=== PATIENT | male | born 1970 | race Caucasian/White ===

== ENCOUNTER 2018-07-27 13:51 | Emergency (ER) | payer MEDICAID ==
[2018-07-27 13:53] VITALS: BP 105/61
[2018-07-27] MEDS ORDERED: HTN MEDICATION (14:02)
[2018-07-27] MEDS ORDERED: OXYCODONE (14:02)
[2018-07-27 14:26] LABS: BASOPHILS # (AUTO) 0.07 x10^3/uL (0-0.1); BASOPHILS % (AUTO) 1 % (0-1); EOSINOPHILS # (AUTO) 0.17 x10^3/uL (0-0.4); EOSINOPHILS % (AUTO) 3 % (1-7); LYMPHOCYTES # (AUTO) 2.29 x10^3/uL (1-3.4); LYMPHOCYTES % (AUTO) 34 % (22-44); MD NO; MEAN CORPUSCULAR HEMOGLOBIN 32.3 pg (27.5-34.5); MEAN CORPUSCULAR HGB CONC 32.9 g/dL (33.2-36.2); MEAN CORPUSCULAR VOLUME 98.2 fL (81-97); MEAN PLATELET VOLUME 9.9 fL (7.4-10.4); MONOCYTES # (AUTO) 0.57 x10^3/uL (0.2-0.8); MONOCYTES % (AUTO) 8 % (2-9); NEUTROPHILS # (AUTO) 3.63 x10^3/uL (1.8-6.8); NEUTROPHILS % (AUTO) 54 % (42-75); PLATELET COUNT 166 x10^3/uL (130-400); RED BLOOD COUNT 4.02 x10^6/uL (4.38-5.82); RED CELL DISTRIBUTION WIDTH 14.4 % (9.4-14.8)
[2018-07-27 14:31] LABS: INTERNATIONAL NORMALIZED RATIO 0.95 (0.93-1.1)
[2018-07-27 14:32] LABS: ALANINE AMINOTRANSFERASE 156 U/L (12-78); ALBUMIN 3.5 g/dL (3.4-5.0); ANION GAP 9 mmol/L (5-15); CALCIUM 8.2 mg/dL (8.5-10.1); CHLORIDE 112 mmol/L (98-107); CREATININE 0.96 mg/dL (0.7-1.3)
[2018-07-27 14:38] LABS: ALKALINE PHOSPHATASE 115 U/L (45-117); BILIRUBIN,TOTAL 0.3 mg/dL (0.2-1.0); TOTAL PROTEIN 7.5 g/dL (6.4-8.2)
--- NOTE | 2018-07-27 15:02 | NUR ---
DOZING ON BED W/ SIDE RAILS UP X2. RESP EVEN & UNLABORED.
--- NOTE | 2018-07-27 15:11 | NUR ---
PT REPORT TO BREAK RN: JACQUELINE Botello PT CARE TRANSFERRED.
--- NOTE | 2018-07-27 15:48 | NUR ---
PT STANDING AGAINST BACK WALL OF ED ROOM 41. WHEN ASKED ABOUT ACTIVITY, PT STATES "I'M LEAVING". WILL NOTIFY ERP
--- NOTE | 2018-07-27 15:51 | NUR ---
PT WEARING OVERCOAT OVER STREET CLOTHES. STATES "I'M NOT STAYING". ASKED PT TO HAVE A SEAT; PT SAT ON END OF GURNEY - REFUSED TO SIT IN CHAIR. SIDE RAIL LOWERED FOR PT TO SIT ON SIDE OF GURNEY, IF HE CHOOSES. NOTIFIED PT THAT DR FORTUNE WOULD LIKE TO PROVIDE LIST FOR ALCOHOL TREATMENT CENTERS. PT STATES "I'M NOT INTERESTED IN THAT" PT VARIES BETWEEN REQUESTING ASSISTANCE AND REFUSING ASSISTANCE FOR ALCOHOL ABUSE. PT USING CELL PHONE, SWEARING AT PERSON HE'S SPEAKING TO.
== END 2018-07-27 17:13 | disposition left against medical advice (07) ==
LOC: ED 16:10
DX: F10.220 Alcohol dependence with intoxication, uncomplicated (principal)
CPT/HCPCS: 36415; 80053; 80307; 85025; 85610; 85730; 99283

== ENCOUNTER 2018-12-28 19:20 | Inpatient (IN) | payer MEDICAID ==
[~2018-12-28] VITALS: Ht 177.8 cm; Wt 100.4 kg
[2019-01-03 12:35] VITALS: BP 157/95
== END 2019-01-03 16:35 | disposition home or self-care (01) | DRG 432 ==
LOC: ED 21:26 → EDIP 21:59 → 4WST 22:26 → DCLOUNGE 01-03 16:26
PROVIDERS: ADMIT Internal Medicine; ATTEND Internal Medicine
DX: K70.10 Alcoholic hepatitis without ascites (principal); N17.0 Acute kidney failure with tubular necrosis; F10.239 Alcohol dependence with withdrawal, unspecified; F33.9 Major depressive disorder, recurrent, unspecified; E87.2 Acidosis; E87.0 Hyperosmolality and hypernatremia; E87.6 Hypokalemia; M75.100 Unspecified rotator cuff tear or rupture of unspecified shoulder, not specified as traumatic; F10.220 Alcohol dependence with intoxication, uncomplicated; I10 Essential (primary) hypertension; E83.42 Hypomagnesemia; G47.00 Insomnia, unspecified; G89.29 Other chronic pain; D69.6 Thrombocytopenia, unspecified; F12.10 Cannabis abuse, uncomplicated; Z80.1 Family history of malignant neoplasm of trachea, bronchus and lung; Z81.8 Family history of other mental and behavioral disorders; Z71.6 Tobacco abuse counseling; Z63.8 Other specified problems related to primary support group; Z71.41 Alcohol abuse counseling and surveillance of alcoholic
CPT/HCPCS: 36415; 96360; 99285; J7042; 71045; 80048; 80076; 80307; 82040; 83735; 85025; 93005; G0378; J1644; J1885; J2405; J3475; J3480; J2060; J7030

== ENCOUNTER 2019-07-09 16:11 | Inpatient (IN) | payer MEDICAID ==
[~2019-07-09] VITALS: Ht 177.8 cm; Wt 107.0 kg
[~2019-07-09 16:11] MED LIST: ACET325T26 PO; AMLO10TA8 PO; AMLO2.5T5 PO; CALC-361 PO; CHOL100011 PO; CLON0.1T22 PO; FLUO20CA23 PO; HTN MEDICATION; HYDR-3341 PO; ISOS20TA58 PO; LOSA100T14 PO; LOSARTAN; METO50TA82 PO; NAPROXEN; OXYCODONE; TRAZ-175 PO
[2019-07-09] MEDS ORDERED: SODIUM CHLORIDE 0.9% 1,000 ML IV ONE (16:20)
[2019-07-09] MEDS ORDERED: ONDANSETRON 2MG/ML, 2ML IVPush ONE (16:30)
[2019-07-09] MEDS ORDERED: FAMOTIDINE 20 MG/2 ML IVPush ONE (16:30)
[2019-07-09] MEDS ORDERED: KETOROLAC 30 MG/1 ML IVPush ONE (16:30)
[2019-07-09] MEDS ORDERED: THIAMINE 100 MG/ML, 2ML IM ONE (16:30)
[2019-07-09] MEDS ORDERED: ONDANSETRON 2MG/ML, 2ML ONE (16:36)
[2019-07-09] MEDS ORDERED: KETOROLAC 30 MG/1 ML ONE (16:36)
[2019-07-09] MEDS ORDERED: THIAMINE 100 MG/ML, 2ML ONE (16:37)
[2019-07-09] MEDS ORDERED: FAMOTIDINE 20 MG/2 ML ONE (16:37)
[2019-07-09 16:48] LABS: BASOPHILS % (AUTO) 1 % (0-1); EOSINOPHILS # (AUTO) 0.15 x10^3/uL (0-0.4); EOSINOPHILS % (AUTO) 2 % (1-7); LYMPHOCYTES # (AUTO) 2.37 x10^3/uL (1-3.4); LYMPHOCYTES % (AUTO) 27 % (22-44); MD NO; MEAN CORPUSCULAR HEMOGLOBIN 31.6 pg (27.5-34.5); MEAN CORPUSCULAR HGB CONC 33.3 g/dL (33.2-36.2); MEAN CORPUSCULAR VOLUME 94.8 fL (81-97); MEAN PLATELET VOLUME 9.7 fL (7.4-10.4); MONOCYTES # (AUTO) 0.56 x10^3/uL (0.2-0.8); MONOCYTES % (AUTO) 7 % (2-9); NEUTROPHILS % (AUTO) 63 % (42-75); PLATELET COUNT 167 x10^3/uL (130-400); RED BLOOD COUNT 3.96 x10^6/uL (4.38-5.82); RED CELL DISTRIBUTION WIDTH 12.6 % (9.4-14.8)
[2019-07-09 16:55] LABS: ALANINE AMINOTRANSFERASE 42 U/L (12-78); ALBUMIN 3.6 g/dL (3.4-5.0); ANION GAP 9 mmol/L (5-15); CALCIUM 8.8 mg/dL (8.5-10.1); CHLORIDE 112 mmol/L (98-107); CREATININE 2.07 mg/dL (0.7-1.3)
[2019-07-09 16:57] LABS: ALKALINE PHOSPHATASE 82 U/L (45-117); BILIRUBIN,TOTAL 0.4 mg/dL (0.2-1.0); TOTAL PROTEIN 7.1 g/dL (6.4-8.2)
--- NOTE | 2019-07-09 17:49 | NUR ---
ciarra palacios in room for reeval. 2nd liter ana. call estefany in reach. nad. as
[2019-07-09] MEDS ORDERED: SODIUM CHLORIDE 0.9% 1,000ML IVBOLUS ONE ×2 (18:00)
--- NOTE | 2019-07-09 19:08 | NUR ---
pt resting in bed fluids infusing. nad. call allison in reach. as
[2019-07-09] MEDS ORDERED: SODIUM CHLORIDE FLUSH 10ML SYR IVF PRN (20:00)
--- NOTE | 2019-07-09 20:15 | NUR ---
third bolus infusing. pt to be admitted. md was in room. pt aware and agrees. asking for pain meds. will ask md. as
--- NOTE | 2019-07-09 20:30 | NUR ---
report to kim bella. as
[2019-07-09 20:55] VITALS: BP 103/65
[2019-07-09] MEDS ORDERED: VITA1TAB67 PO (21:14)
[2019-07-09] MEDS ORDERED: SERT25TA PO (21:14)
[2019-07-09] MEDS ORDERED: OXYcodone IR 5MG TABLET PO PRN (23:00)
[2019-07-09] MEDS ORDERED: DOCUSATE 100 MG CAPSULE PO PRN (23:00)
[2019-07-09] MEDS ORDERED: ONDANSETRON 2MG/ML, 2ML IVPush PRN (23:00)
[2019-07-09] MEDS ORDERED: hydrALAzine 20 MG/ML, 1ML IVPush PRN (23:00)
[2019-07-09] MEDS ORDERED: BISACODYL 10 MG SUPP PR PRN (23:00)
[2019-07-09] MEDS ORDERED: POLYETHYLENE GLYCOL 17 GM PACKET PO PRN (23:00)
[2019-07-09] MEDS ORDERED: PROMETHAZINE 25 MG/ML, 1ML IM PRN (23:00)
[2019-07-09] MEDS ORDERED: ONDANSETRON ODT 4 MG PO PRN (23:00)
[2019-07-09] MEDS ORDERED: LORazepam 0.5MG TABLET PO PRN (23:30)
[2019-07-09] MEDS ORDERED: LORazepam 2 MG/ML, 1ML IV PRN ×3 (23:30)
[2019-07-09] MEDS ORDERED: LORazepam 1MG TABLET PO PRN ×3 (23:30)
[2019-07-09 23:31] LABS: INTERNATIONAL NORMALIZED RATIO 0.97 (0.93-1.1); PROTHROMBIN TIME 10.3 Seconds (9.6-11.5)
[2019-07-09] MEDS: THIAMINE 100MG TABLET PO SCH (23:32)
[2019-07-09] MEDS: PANTOPRAZOLE 40 MG IV IVPush SCH (23:32)
[2019-07-09] MEDS: FOLIC ACID 1 MG TABLET PO SCH (23:33)
[2019-07-09] MEDS: D5%-0.9% NACL 1,000 ML IV SCH (23:33)
[2019-07-09 23:54] LABS: FREE T4 (FREE THYROXINE) 0.87 ng/dL (0.76-1.46)
[2019-07-10 01:20] VITALS: BP 112/72
[2019-07-10 06:13] LABS: ALBUMIN 3.1 g/dL (3.4-5.0); ANION GAP 7 mmol/L (5-15); BASOPHILS # (AUTO) 0.04 x10^3/uL (0-0.1); BASOPHILS % (AUTO) 1 % (0-1); CALCIUM 7.8 mg/dL (8.5-10.1); CHLORIDE 114 mmol/L (98-107); EOSINOPHILS # (AUTO) 0.17 x10^3/uL (0-0.4); EOSINOPHILS % (AUTO) 4 % (1-7); LYMPHOCYTES # (AUTO) 1.74 x10^3/uL (1-3.4); LYMPHOCYTES % (AUTO) 38 % (22-44); MD NO; MEAN CORPUSCULAR HEMOGLOBIN 31.9 pg (27.5-34.5); MEAN CORPUSCULAR HGB CONC 33.3 g/dL (33.2-36.2); MEAN CORPUSCULAR VOLUME 95.9 fL (81-97); MEAN PLATELET VOLUME 9.8 fL (7.4-10.4); MONOCYTES % (AUTO) 11 % (2-9); NEUTROPHILS # (AUTO) 2.16 x10^3/uL (1.8-6.8); NEUTROPHILS % (AUTO) 47 % (42-75); PLATELET COUNT 125 x10^3/uL (130-400); RED BLOOD COUNT 3.68 x10^6/uL (4.38-5.82); RED CELL DISTRIBUTION WIDTH 13.2 % (9.4-14.8)
[2019-07-10 06:17] LABS: ALANINE AMINOTRANSFERASE 46 U/L (12-78); ALKALINE PHOSPHATASE 72 U/L (45-117); BILIRUBIN,TOTAL 0.4 mg/dL (0.2-1.0); CHOL/HDL RATIO 4.1; CHOLESTEROL, TOTAL 148 mg/dL (140-239); CREATININE 1.76 mg/dL (0.7-1.3); HDL CHOL % 24 % (26-37); HDL CHOLESTEROL (DIRECT) 36 mg/dL (40-60); LDL CHOLESTEROL,CALCULATED 67 mg/dL (54-169); LDL/HDL RATIO 1.9 (0.5-3.0); TOTAL PROTEIN 6.4 g/dL (6.4-8.2); TRIGLYCERIDES 226 mg/dL (50-200); VLDL CHOLESTEROL 45 mg/dL (0-25)
[2019-07-10] MEDS: D5%-0.9% NACL 1,000 ML IV SCH (08:00)
[2019-07-10 08:20] VITALS: BP 146/93
[2019-07-10] MEDS ORDERED: MULTIVITAMIN 1 TABLET PO SCH (09:00)
[2019-07-10] MEDS: FOLIC ACID 1 MG TABLET PO SCH (09:01)
[2019-07-10] MEDS: THIAMINE 100MG TABLET PO SCH (09:01)
[2019-07-10] MEDS: LORazepam 1MG TABLET PO PRN ×2 (09:23→16:59)
[2019-07-10] MEDS: PANTOPRAZOLE 40 MG IV IVPush SCH (12:22)
[2019-07-10] MEDS ORDERED: AMLO10TA8 PO (12:24)
[2019-07-10] MEDS ORDERED: LOSA100T14 PO (12:25)
[2019-07-10] MEDS ORDERED: TRAZ-175 PO (12:25)
[2019-07-10] MEDS ORDERED: SERT100T32 PO (12:25)
[2019-07-10] MEDS: LORazepam 2 MG/ML, 1ML IV PRN ×2 (12:34→21:05)
[2019-07-10 12:58] LABS: MICROSCOPIC NOT IND
[2019-07-10 13:07] LABS: CULTURE INDICATED? NO
[2019-07-10 14:03] VITALS: BP 145/88
[2019-07-10] MEDS: CHLORDIAZEPOXIDE 25 MG CAPSULE PO SCH ×2 (17:43→21:05)
[2019-07-10] MEDS: SODIUM CHLORIDE 0.9% 1,000 ML IV SCH (17:43)
[2019-07-10] MEDS ORDERED: hydrALAzine 20 MG/ML, 1ML IV PRN (18:00)
[2019-07-10] MEDS: PROPRANOLOL 10 MG TABLET PO SCH ×2 (18:02→21:05)
[2019-07-10 21:04] VITALS: BP 152/98
[2019-07-10] MEDS: MAGNESIUM OXIDE 400 MG TABLET PO SCH (21:05)
[2019-07-10] MEDS: TRAZODONE 150MG TABLET PO SCH (21:05)
[2019-07-10] MEDS: PANTOPRAZOLE 20MG TABLET PO SCH (21:05)
[2019-07-11] MEDS: LORazepam 2 MG/ML, 1ML IV PRN ×5 (01:51→18:40)
[2019-07-11] MEDS: SODIUM CHLORIDE 0.9% 1,000 ML IV SCH ×3 (01:52→17:51)
[2019-07-11 03:50] VITALS: BP 138/89
[2019-07-11] MEDS: CHLORDIAZEPOXIDE 25 MG CAPSULE PO SCH ×4 (06:39→20:57)
[2019-07-11] MEDS: PROPRANOLOL 10 MG TABLET PO SCH ×3 (06:39→20:56)
[2019-07-11] MEDS: PANTOPRAZOLE 20MG TABLET PO SCH ×2 (06:39→15:39)
[2019-07-11 08:03] LABS: ANION GAP 7 mmol/L (5-15); CALCIUM 8.2 mg/dL (8.5-10.1); CHLORIDE 111 mmol/L (98-107); CREATININE 1.44 mg/dL (0.7-1.3)
[2019-07-11] MEDS: MAGNESIUM OXIDE 400 MG TABLET PO SCH ×2 (08:37→20:56)
[2019-07-11] MEDS: MULTIVITAMIN 1 TABLET PO SCH (08:38)
[2019-07-11] MEDS ORDERED: THIAMINE 100MG TABLET PO SCH (09:00)
[2019-07-11] MEDS ORDERED: FOLIC ACID 1 MG TABLET PO SCH (09:00)
[2019-07-11 10:10] VITALS: BP 145/103
[2019-07-11 15:21] VITALS: BP 158/107
[2019-07-11] MEDS ORDERED: MAGNESIUM SULFATE PMX 4GM/100M 100 ML IV ONE (18:00)
[2019-07-11] MEDS ORDERED: hydrALAzine 20 MG/ML, 1ML IV PRN (18:00)
[2019-07-11 19:47] VITALS: BP 145/94
[2019-07-11] MEDS: TRAZODONE 150MG TABLET PO SCH (20:56)
[2019-07-12] MEDS: LORazepam 2 MG/ML, 1ML IV PRN ×5 (01:05→18:47)
[2019-07-12 01:32] VITALS: BP 140/91
[2019-07-12] MEDS: SODIUM CHLORIDE 0.9% 1,000 ML IV SCH ×2 (04:58→14:11)
[2019-07-12] MEDS: PANTOPRAZOLE 20MG TABLET PO SCH ×2 (05:34→17:19)
[2019-07-12] MEDS: PROPRANOLOL 10 MG TABLET PO SCH ×3 (05:34→21:39)
[2019-07-12] MEDS: CHLORDIAZEPOXIDE 25 MG CAPSULE PO SCH ×4 (05:35→21:39)
[2019-07-12 06:38] LABS: CHLORIDE 110 mmol/L (98-107)
[2019-07-12 06:44] LABS: ANION GAP 11 mmol/L (5-15); CALCIUM 8.5 mg/dL (8.5-10.1); CREATININE 1.22 mg/dL (0.7-1.3)
[2019-07-12 08:12] VITALS: BP 142/92
[2019-07-12] MEDS: MAGNESIUM OXIDE 400 MG TABLET PO SCH ×2 (10:10→21:40)
[2019-07-12] MEDS: MULTIVITAMIN 1 TABLET PO SCH (10:11)
[2019-07-12 13:08] VITALS: BP 144/89
[2019-07-12 20:00] VITALS: BP 158/99
[2019-07-12] MEDS: TRAZODONE 150MG TABLET PO SCH (21:39)
[2019-07-13] MEDS: SODIUM CHLORIDE 0.9% 1,000 ML IV SCH ×3 (00:03→19:54)
[2019-07-13] MEDS: LORazepam 1MG TABLET PO PRN ×3 (00:03→09:30)
[2019-07-13 02:43] VITALS: BP 151/94
[2019-07-13] MEDS: PANTOPRAZOLE 20MG TABLET PO SCH ×2 (06:22→15:35)
[2019-07-13] MEDS: PROPRANOLOL 10 MG TABLET PO SCH ×3 (06:22→22:47)
[2019-07-13] MEDS: CHLORDIAZEPOXIDE 25 MG CAPSULE PO SCH ×4 (06:22→19:55)
[2019-07-13 07:12] VITALS: BP 144/96
[2019-07-13] MEDS: MULTIVITAMIN 1 TABLET PO SCH (09:30)
[2019-07-13] MEDS: MAGNESIUM OXIDE 400 MG TABLET PO SCH ×2 (09:30→19:54)
[2019-07-13 13:02] VITALS: BP 143/97
[2019-07-13 18:36] VITALS: BP 149/97
[2019-07-13] MEDS: TRAZODONE 150MG TABLET PO SCH (19:55)
[2019-07-14 00:24] VITALS: BP 138/89
[2019-07-14] MEDS: SODIUM CHLORIDE 0.9% 1,000 ML IV SCH (04:39)
[2019-07-14] MEDS: CHLORDIAZEPOXIDE 25 MG CAPSULE PO SCH ×2 (06:22→10:48)
[2019-07-14] MEDS: PROPRANOLOL 10 MG TABLET PO SCH (06:22)
[2019-07-14] MEDS: PANTOPRAZOLE 20MG TABLET PO SCH (06:27)
[2019-07-14 07:08] VITALS: BP 149/89
[2019-07-14] MEDS: MAGNESIUM OXIDE 400 MG TABLET PO SCH (09:23)
[2019-07-14] MEDS: MULTIVITAMIN 1 TABLET PO SCH (09:23)
[2019-07-14] MEDS ORDERED: MAGN400T26 PO (12:27)
[2019-07-14] MEDS ORDERED: FOLI-17 PO (12:27)
[2019-07-14] MEDS ORDERED: CHLO25CA9 PO (12:27)
[2019-07-14] MEDS ORDERED: THIA100T67 PO (12:27)
[2019-07-14] MEDS ORDERED: PANT20TA3 PO (12:27)
[2019-07-14] MEDS ORDERED: MULT1TAB60 PO (12:27)
[2019-07-14 13:46] VITALS: BP 133/92
== END 2019-07-14 14:45 | disposition home or self-care (01) | DRG 391 ==
LOC: ED 19:11 → EDIP 21:29 → 4WST 21:34 → DCLOUNGE 07-14 14:21
PROVIDERS: ADMIT Internal Medicine; ATTEND Family Medicine
DX: K29.20 Alcoholic gastritis without bleeding (principal); N17.0 Acute kidney failure with tubular necrosis; F10.239 Alcohol dependence with withdrawal, unspecified; E87.2 Acidosis; E86.0 Dehydration; F10.229 Alcohol dependence with intoxication, unspecified; F41.9 Anxiety disorder, unspecified; Y90.0 Blood alcohol level of less than 20 mg/100 ml; F32.9 Major depressive disorder, single episode, unspecified; F12.90 Cannabis use, unspecified, uncomplicated; D64.9 Anemia, unspecified; I12.9 Hypertensive chronic kidney disease with stage 1 through stage 4 chronic kidney disease, or unspecified chronic kidney disease; N18.9 Chronic kidney disease, unspecified; E83.42 Hypomagnesemia; Z88.0 Allergy status to penicillin; Z79.899 Other long term (current) drug therapy
CPT/HCPCS: 36415; 96361; 96372; 96374; 96375; 99285; J3490; J7042; 80048; 80053; 80061; 80307; 81003; 82306; 82607; 82728; 83036; 83540; 83550; 83690; 83735; 84100; 84439; 84443; 84466; 85025; 85610; 86850; 86900; G0378; J1885; J2405; J3411; Q0162; C9113; J0360; J2060; J3475; J7030

== ENCOUNTER 2020-01-09 21:46 | Emergency (ER) | payer MEDICAID ==
[~2020-01-09] VITALS: Ht 182.9 cm; Wt 103.6 kg
[~2020-01-09 21:46] MED LIST changes: +CHLO25CA9 PO; +FOLI-17 PO; +MAGN400T26 PO; +MULT-449 PO; +PANT20TA3 PO; +SERT100T32 PO; +SERT25TA PO; +THIA100T67 PO; +VITA1TAB67 PO
--- NOTE | 2020-01-09 21:54 | NUR ---
PT BIB EMS WITH ETOH INTOXICATION. PT REPORTS DRINKING 1 HANDLE OF VODKA TODAY. REPORTS CHRONIC ETOH ABUSE. PT CONNECTED TO MONITORING, CALL LIGHT WITHIN REACH, ALL SAFETY MEASURES IN PLACE.
[2020-01-09] MEDS ORDERED: SODIUM CHLORIDE FLUSH 10ML SYR IVF ONE (22:30)
[2020-01-09] MEDS ORDERED: SODIUM CHLORIDE 0.9% 1,000ML IVBOLUS ONE (22:30)
--- NOTE | 2020-01-09 22:30 | NUR ---
IV ATTEMPTED ON PT, UNABLE TO OBTAIN. PT REFUSED FURTHER IV ATTEMPTS. ERP NOTIFIED.
--- NOTE | 2020-01-09 23:37 | NUR ---
PT RESTING ON PASCUAL, AORedd. MONITORING IN PLACE, CALL LIGHT WITHIN REACH, ALL SAFETY MEASURES IN PLACE.
[2020-01-09 23:51] LABS: BASOPHILS # (AUTO) 0.03 x10^3/uL (0-0.1); BASOPHILS % (AUTO) 0 % (0-1); EOSINOPHILS # (AUTO) 0.13 x10^3/uL (0-0.4); EOSINOPHILS % (AUTO) 1 % (1-7); LYMPHOCYTES % (AUTO) 42 % (22-44); MD NO; MEAN CORPUSCULAR HEMOGLOBIN 32.9 pg (27.5-34.5); MEAN CORPUSCULAR HGB CONC 33.3 g/dL (33.2-36.2); MEAN CORPUSCULAR VOLUME 98.8 fL (81-97); MONOCYTES % (AUTO) 8 % (2-9); NEUTROPHILS # (AUTO) 4.32 x10^3/uL (1.8-6.8); NEUTROPHILS % (AUTO) 49 % (42-75); PLATELET COUNT 166 x10^3/uL (130-400); RED BLOOD COUNT 4.39 x10^6/uL (4.38-5.82); RED CELL DISTRIBUTION WIDTH 14.1 % (9.4-14.8)
[2020-01-10 00:01] LABS: ALANINE AMINOTRANSFERASE 33 U/L (12-78); ALBUMIN 3.7 g/dL (3.4-5.0); ANION GAP 12 mmol/L (5-15); CALCIUM 8.3 mg/dL (8.5-10.1); CHLORIDE 113 mmol/L (98-107); CREATININE 1.13 mg/dL (0.7-1.3)
[2020-01-10 00:03] LABS: ALKALINE PHOSPHATASE 97 U/L (45-117); BILIRUBIN,TOTAL 0.5 mg/dL (0.2-1.0); TOTAL PROTEIN 7.7 g/dL (6.4-8.2)
--- NOTE | 2020-01-10 02:51 | NUR ---
ATTEMPTED TO AMBUALTE PT, PT UNABLE TO STAND STEADY.
[2020-01-10 04:15] VITALS: BP 133/83
== END 2020-01-10 05:02 | disposition home or self-care (01) ==
LOC: MERGE 21:46 → ED 01-10 01:25
DX: F10.229 Alcohol dependence with intoxication, unspecified (principal); R94.31 Abnormal electrocardiogram [ECG] [EKG]; I10 Essential (primary) hypertension; Z72.9 Problem related to lifestyle, unspecified; Y90.9 Presence of alcohol in blood, level not specified
CPT/HCPCS: 36415; 80053; 80307; 83690; 85025; 93005; 99284

== ENCOUNTER 2020-01-11 16:05 | Emergency (ER) | payer MEDICAID ==
[~2020-01-11] VITALS: Ht 177.8 cm; Wt 100.0 kg
[2020-01-11 16:08] VITALS: BP 133/107
--- NOTE | 2020-01-11 16:20 | NUR ---
PT ATTACHED TO MONITORS, PROVIDED WITH WARM BLANKETS. CALL LIGHT IN REACH.
--- NOTE | 2020-01-11 16:43 | NUR ---
TASK RN: PT AMBULATING ABOUT ROOM. NOTED TO BE SLIGHTLY AGITATED AND TREMULOUS. LAB AT BEDSIDE TO DRAW, PT COMPLIANT WITH LAB.
[2020-01-11] MEDS ORDERED: CHLORDIAZEPOXIDE 25 MG CAPSULE ONE (16:49)
--- NOTE | 2020-01-11 16:59 | NUR ---
TASK RN: PT MEDICATED PER EMAR
[2020-01-11] MEDS ORDERED: CHLORDIAZEPOXIDE 25 MG CAPSULE PO ONE (17:00)
[2020-01-11 17:01] LABS: ALANINE AMINOTRANSFERASE 42 U/L (12-78); ALBUMIN 3.8 g/dL (3.4-5.0); ANION GAP 12 mmol/L (5-15); CALCIUM 8.6 mg/dL (8.5-10.1); CHLORIDE 117 mmol/L (98-107); CREATININE 1.61 mg/dL (0.7-1.3)
[2020-01-11 17:03] LABS: ALKALINE PHOSPHATASE 104 U/L (45-117); BILIRUBIN,TOTAL 0.5 mg/dL (0.2-1.0); TOTAL PROTEIN 8.5 g/dL (6.4-8.2)
[2020-01-11 17:07] LABS: SALICYLATE LEVEL < 1.7 mg/dL (2.8-20.0)
[2020-01-11 17:17] LABS: MEAN CORPUSCULAR HEMOGLOBIN 33.4 pg (27.5-34.5); MEAN CORPUSCULAR HGB CONC 33.9 g/dL (33.2-36.2); MEAN CORPUSCULAR VOLUME 98.4 fL (81-97); MEAN PLATELET VOLUME 9.2 fL (7.4-10.4); PLATELET COUNT 192 x10^3/uL (130-400); RED BLOOD COUNT 4.26 x10^6/uL (4.38-5.82); RED CELL DISTRIBUTION WIDTH 14.2 % (9.4-14.8)
[2020-01-11 17:39] LABS: BASOPHILS # (AUTO) 0.03 x10^3/uL (0-0.1); BASOPHILS % (AUTO) 0 % (0-1); EOSINOPHILS % (AUTO) 1 % (1-7); LYMPHOCYTES # (AUTO) 4.04 x10^3/uL (1-3.4); LYMPHOCYTES % (AUTO) 49 % (22-44); MD SCAN; MONOCYTES # (AUTO) 0.47 x10^3/uL (0.2-0.8); MONOCYTES % (AUTO) 6 % (2-9); NEUTROPHILS # (AUTO) 3.69 x10^3/uL (1.8-6.8); NEUTROPHILS % (AUTO) 44 % (42-75)
--- NOTE | 2020-01-11 17:48 | NUR ---
PT AWARE OF NEED FOR URINE SAMPLE. CUP AT BEDSIDE. PT DENIES ANY ABILITY TO URINATE AT THIS TIME. CALL LIGHT IN REACH.
--- NOTE | 2020-01-11 18:26 | NUR ---
PT DENIES ANY ABILITY TO URINATE AT THIS TIME. REMINDED THAT THE URINE SAMPLE IS WHAT WE ARE WAITING ON AT THIS TIME. VERBALIZES UNDERSTANDING. DENIES ANY FURTHER NEEDS. CALL LIGHT IN REACH.
[2020-01-11] MEDS ORDERED: SODIUM CHLORIDE FLUSH 10ML SYR IVF ONE (18:30)
[2020-01-11] MEDS ORDERED: SODIUM CHLORIDE 0.9% 1,000ML IVBOLUS ONE (18:30)
[2020-01-11 19:05] LABS: AMPHETAMINE SCREEN, URINE Negative (Negative); BARBITURATE SCREEN, URINE Negative (Negative); BENZODIAZEPINE SCREEN, URINE Positive (Negative); CANNABINOID SCREEN, URINE Positive (Negative); COCAINE SCREEN, URINE Negative (Negative); METHADONE SCREEN, URINE Negative (Negative); OPIATE SCREEN, URINE Negative (Negative)
== END 2020-01-11 19:42 | disposition home or self-care (01) ==
LOC: ED 18:43
DX: F10.221 Alcohol dependence with intoxication delirium (principal); R11.2 Nausea with vomiting, unspecified; R00.0 Tachycardia, unspecified; Y90.9 Presence of alcohol in blood, level not specified
CPT/HCPCS: 36415; 80053; 80307; 85025; 99283

== ENCOUNTER 2020-02-13 18:10 | Emergency (ER) | payer MEDICAID ==
[~2020-02-13] VITALS: Ht 162.6 cm; Wt 105.0 kg
[~2020-02-13 18:10] MED LIST changes: -PANT20TA3 PO; +PANT20TA4 PO
[2020-02-13] MEDS ORDERED: ONDANSETRON 2MG/ML, 2ML ONE (18:52)
--- NOTE | 2020-02-13 18:55 | NUR ---
REPORT FROM BEATRIZ NOVAK ASSUMING CARE OF PT AT THIS TIME
[2020-02-13 19:00] LABS: MD YES
[2020-02-13] MEDS ORDERED: SODIUM CHLORIDE 0.9% 1,000ML IVBOLUS ONE (19:00)
[2020-02-13] MEDS ORDERED: ONDANSETRON 2MG/ML, 2ML IVPush ONE (19:00)
[2020-02-13] MEDS ORDERED: SODIUM CHLORIDE FLUSH 10ML SYR IVF ONE (19:00)
[2020-02-13 19:07] LABS: MEAN CORPUSCULAR HEMOGLOBIN 31.6 pg (27.5-34.5); MEAN CORPUSCULAR HGB CONC 32.8 g/dL (33.2-36.2); MEAN CORPUSCULAR VOLUME 96.3 fL (81-97); MEAN PLATELET VOLUME 8.6 fL (7.4-10.4); PLATELET COUNT 255 x10^3/uL (130-400); RED CELL DISTRIBUTION WIDTH 14.9 % (9.4-14.8)
[2020-02-13 19:11] LABS: ALANINE AMINOTRANSFERASE 31 U/L (12-78); ALBUMIN 3.2 g/dL (3.4-5.0); ANION GAP 9 mmol/L (5-15); CALCIUM 8.6 mg/dL (8.5-10.1); CHLORIDE 117 mmol/L (98-107); CREATININE 1.06 mg/dL (0.7-1.3)
[2020-02-13 19:13] LABS: ALKALINE PHOSPHATASE 77 U/L (45-117); BILIRUBIN,TOTAL 0.2 mg/dL (0.2-1.0); TOTAL PROTEIN 6.9 g/dL (6.4-8.2)
--- NOTE | 2020-02-13 19:13 | NUR ---
PIV STARTED, FLUIDS INFUSING PT TOLERATING WELL NADN VSS
[2020-02-13 19:23] LABS: <PLATELET ESTIMATE> ADEQUATE; <PLT MORPHOLOGY> NORMAL PLT MORPH; <RBC MORPHOLOGY> NORMAL; BASOS#(MANUAL) 0.08 x10^3/uL (0-0.1); BASOS% (MANUAL) 1 % (0-1); EOS#(MANUAL) 0.25 x10^3/uL (0.0-0.4); EOS% (MANUAL) 3 % (1-7); LYMPH#(MANUAL) 4.18 x10^3/uL (1-3.4); LYMPHS% (MANUAL) 51 % (22-44); MONOS#(MANUAL) 0.41 x10^3/uL (0.3-2.7); MONOS% (MANUAL) 5 % (2-9); SEG#(MANUAL) 3.28 x10^3/uL (1.8-6.8); SEGS% (MANUAL) 40 % (42-75)
--- NOTE | 2020-02-13 20:24 | NUR ---
Note chantel in EDM - 02/13/20 at 2229 by [email or web address] Pt VS stable. Ambulatory. Sling in place. Given a taxi vouchure with d/c paperwork. Pt given prescription for pain medication.
--- NOTE | 2020-02-13 21:20 | NUR ---
PT REMOVING PULSE OX THROWING ACROSS ROOM AND SHOUTING, PT EDUCATED THIS IS NOT ACCEPTABLE BEHAVIORS
--- NOTE | 2020-02-13 21:40 | NUR ---
PT MOVED TO ROOM 4 VSS ANGELA CALL LIGHT IN REACH PT EDUCATED ON USE OF LIGHT
--- NOTE | 2020-02-13 23:21 | NUR ---
PT RESTING ON GURNEY NADN REPOSITIONED FOR COMFORT
--- NOTE | 2020-02-14 00:49 | NUR ---
PT STILL SLEEPING OFF AND ON, PT STS HE FEELS AWFUL AND HAS NO NEW SYMPTOMS, MD AWARE POC REMAINS UNCHANGED AT THIS TIME
--- NOTE | 2020-02-14 01:24 | NUR ---
PT RESTING ON PASCUAL SERNA DENIES NEEDS
[2020-02-14 01:31] VITALS: BP 173/106
--- NOTE | 2020-02-14 01:32 | NUR ---
PT REPORTS TAKING SOME BP MEDS THIS AM BUT HAS MISSED HIS NIGHT TIME DOSE TONIGHT
--- NOTE | 2020-02-14 01:38 | NUR ---
PT REPOSITIONED FOR COMFORT AT THIS TIME EDUCATED ON NEED TO SOBER UP MORE PRIOR TO DC
--- NOTE | 2020-02-14 03:10 | NUR ---
PT RESTING ON GURNEY NADN, PLACED ON 2L NC FOR COMFORT WHILE SLEEPING
--- NOTE | 2020-02-14 04:11 | NUR ---
ATTEMPTED TO AMB PT, PT STS UNABLE TO GET UP. PT AMB TO DOOR AND DOWN CARRILLO REQ SMALL ASSIST TO STEADY GAIT. EMT TO BREATHALYZE PT AT THIS TIME
--- NOTE | 2020-02-14 05:57 | NUR ---
PT AMB WITH STEADY GAIT PROVIDED CAB VOUCHER AND LIST OF SUBABUSE RESOURCES. PIV DC NO S/S OF INFECTION/ PAIN AT THIS TIME
== END 2020-02-14 05:59 | disposition home or self-care (01) ==
LOC: ED 19:52
DX: F10.129 Alcohol abuse with intoxication, unspecified (principal); R11.2 Nausea with vomiting, unspecified; I10 Essential (primary) hypertension; Y90.0 Blood alcohol level of less than 20 mg/100 ml
CPT/HCPCS: 36415; 80053; 85025; 96361; 96374; 99285; J2405; J7030

== ENCOUNTER 2020-06-19 16:38 | Inpatient (IN) | payer MEDICAID ==
[~2020-06-19] VITALS: Ht 177.8 cm; Wt 110.0 kg
[~2020-06-19 16:38] MED LIST changes: +AMLO-211 PO; -AMLO10TA8 PO; +CLON0.1T2 PO; +HYDR25SU21 RC; +METO-93 PO; +OMEP40CA42 PO; +SUCR1ORA5 PO
--- NOTE | 2020-06-19 17:27 | NUR ---
pt placed on environmental monitoring specialist, Brathalizer completed. IV started for lab draw. seizure pads in place with history of seizures for detox
--- NOTE | 2020-06-19 17:28 | NUR ---
PA at bedside, pt states dark stools and diarrhea. Pt refuses rectal exam from PA.
--- NOTE | 2020-06-19 17:34 | NUR ---
PT STATES LUZ MARINA VINCENT AT [facility] [phone] IS WHOM TO CALL WHEN READY FOR DISCHARGE.
[2020-06-19 17:50] LABS: BASOPHILS % (AUTO) 1 % (0-1); EOSINOPHILS % (AUTO) 1 % (1-7); LYMPHOCYTES % (AUTO) 28 % (22-44); MEAN CORPUSCULAR HEMOGLOBIN 33.9 pg (27.5-34.5); MEAN CORPUSCULAR HGB CONC 34.7 g/dL (33.2-36.2); MEAN PLATELET VOLUME 10.1 fL (7.4-10.4); MONOCYTES % (AUTO) 7 % (2-9); NEUTROPHILS % (AUTO) 64 % (42-75); PLATELET COUNT 96 x10^3/uL (130-400); RED BLOOD COUNT 3.47 x10^6/uL (4.38-5.82); RED CELL DISTRIBUTION WIDTH 13.9 % (9.4-14.8)
[2020-06-19 17:58] LABS: MD NO
[2020-06-19 18:00] LABS: ANION GAP 16 mmol/L (5-15); CHLORIDE 100 mmol/L (98-107); CREATININE 2.32 mg/dL (0.7-1.3)
--- NOTE | 2020-06-19 18:02 | NUR ---
This RN called [facility] and spoke with colton. They will take him if he can walk and talk and is below 0.3.
--- NOTE | 2020-06-19 18:04 | NUR ---
all labs back, chart up for ERP.
[2020-06-19] MEDS ORDERED: SODIUM CHLORIDE 0.9% 1,000ML IVBOLUS ONE (18:30)
[2020-06-19] MEDS ORDERED: SODIUM CHLORIDE FLUSH 10ML SYR IVF ONE (18:30)
--- NOTE | 2020-06-19 19:03 | NUR ---
REPORT FROM ANNEL NOVAK.
[2020-06-19] MEDS ORDERED: LORazepam 2 MG/ML, 1ML ONE (19:49)
[2020-06-19] MEDS ORDERED: MAGNESIUM SULFATE 1 GM, THIAMINE 100 MG, FOLIC ACID 1 MG in SODIUM CHLORIDE 0.9% 1,000 ML IV ONE (20:00)
[2020-06-19] MEDS ORDERED: MAALOX/HYOSCYAMINE/LIDOCAINE 45 ML BTL PO ONE (20:00)
[2020-06-19] MEDS ORDERED: LORazepam 2 MG/ML, 1ML IVPush ONE (20:00)
[2020-06-19] MEDS ORDERED: MAALOX/HYOSCYAMINE/LIDOCAINE 45 ML BTL ONE (20:15)
[2020-06-19] MEDS ORDERED: PANTOPRAZOLE 40 MG IV IVPush SCH (21:00)
[2020-06-19] MEDS ORDERED: PROMETHAZINE 25 MG/ML, 1ML IM PRN (21:00)
[2020-06-19] MEDS ORDERED: LORazepam 1MG TABLET PO PRN ×4 (21:00)
[2020-06-19] MEDS ORDERED: LACTATED RINGERS 1,000 ML IV SCH (21:00)
[2020-06-19] MEDS ORDERED: LORazepam 2 MG/ML, 1ML IV PRN ×2 (21:00)
[2020-06-19] MEDS ORDERED: ACETAMINOPHEN 325 MG TABLET PO PRN (21:00)
[2020-06-19 21:14] LABS: ALBUMIN 3.5 g/dL (3.4-5.0); BILIRUBIN, DIRECT 0.3 mg/dL (0.1-0.2)
[2020-06-19 21:24] LABS: BILIRUBIN,INDIRECT 0.3 mg/dL (0.0-2.0); BILIRUBIN,TOTAL 0.6 mg/dL (0.2-1.0); TOTAL PROTEIN 7.3 g/dL (6.4-8.2)
[2020-06-19] MEDS: ONDANSETRON 2MG/ML, 2ML IVPush PRN (21:38)
[2020-06-19] MEDS: LORazepam 2 MG/ML, 1ML IV PRN ×2 (21:39→22:39)
[2020-06-19] MEDS: THIAMINE 100MG TABLET PO/NG SCH (21:42)
[2020-06-19 21:46] VITALS: BP 115/77
[2020-06-19] MEDS: ESOMEPRAZOLE 40 MG IV IVPush SCH (22:15)
[2020-06-20] MEDS: LORazepam 2 MG/ML, 1ML IV PRN ×9 (00:44→23:19)
[2020-06-20 01:16] VITALS: BP 130/92
[2020-06-20 04:00] LABS: CHLORIDE,URINE RANDOM 10 mmol/L; POTASSIUM,URINE RANDOM 7 mmol/L; SODIUM,URINE RANDOM 12 mmol/L
[2020-06-20 04:06] LABS: AMPHETAMINE SCREEN, URINE Negative (Negative); BARBITURATE SCREEN, URINE Negative (Negative); BENZODIAZEPINE SCREEN, URINE Positive (Negative); CANNABINOID SCREEN, URINE Negative (Negative); COCAINE SCREEN, URINE Negative (Negative); METHADONE SCREEN, URINE Negative (Negative); OPIATE SCREEN, URINE Negative (Negative)
[2020-06-20 05:49] LABS: BASOPHILS % (AUTO) 0 % (0-1); EOSINOPHILS % (AUTO) 1 % (1-7); LYMPHOCYTES % (AUTO) 20 % (22-44); MEAN CORPUSCULAR HGB CONC 34.5 g/dL (33.2-36.2); MEAN PLATELET VOLUME 10.2 fL (7.4-10.4); MONOCYTES % (AUTO) 5 % (2-9); NEUTROPHILS % (AUTO) 74 % (42-75); RED BLOOD COUNT 3.15 x10^6/uL (4.38-5.82); RED CELL DISTRIBUTION WIDTH 13.9 % (9.4-14.8)
[2020-06-20 06:55] LABS: MD SCAN; PLATELET COUNT 60 x10^3/uL (130-400)
[2020-06-20 07:15] VITALS: BP 157/108
[2020-06-20] MEDS: THIAMINE 100MG TABLET PO/NG SCH ×2 (07:41→20:20)
[2020-06-20] MEDS: SERTRALINE 100MG TABLET PO SCH (07:41)
[2020-06-20] MEDS: METOPROLOL SUCCINATE 50 MG TAB.ER.24H PO SCH ×2 (07:41→20:14)
[2020-06-20] MEDS ORDERED: DIAZEPAM 5 MG TABLET ONE ×2 (08:10→13:31)
[2020-06-20] MEDS: DIAZEPAM 10 MG TABLET PO SCH ×3 (08:14→20:14)
[2020-06-20] MEDS: ESOMEPRAZOLE 40 MG IV IVPush SCH ×2 (09:04→20:19)
[2020-06-20] MEDS: MORPHINE SULFATE 4 MG/ML, 1ML IVPush PRN ×3 (09:04→23:42)
[2020-06-20 09:14] LABS: INTERNATIONAL NORMALIZED RATIO 1.04 (0.93-1.1)
[2020-06-20 09:17] LABS: ALANINE AMINOTRANSFERASE 302 U/L (12-78); ANION GAP 6 mmol/L (5-15); CALCIUM 8.2 mg/dL (8.5-10.1); CHLORIDE 105 mmol/L (98-107); CREATININE 1.73 mg/dL (0.7-1.3)
[2020-06-20 09:19] LABS: ALKALINE PHOSPHATASE 73 U/L (45-117)
[2020-06-20 10:54] LABS: MICROSCOPIC AUTO
[2020-06-20 14:01] VITALS: BP 150/92
[2020-06-20] MEDS: LACTATED RINGERS 1,000 ML IV SCH (15:31)
[2020-06-20 17:47] VITALS: BP 153/115
[2020-06-20 20:28] VITALS: BP 158/101
[2020-06-20 23:18] VITALS: BP 154/95
[2020-06-21] MEDS: LACTATED RINGERS 1,000 ML IV SCH ×3 (01:00→20:36)
[2020-06-21] MEDS: DIAZEPAM 10 MG TABLET PO SCH ×2 (01:30→02:00)
[2020-06-21 07:11] VITALS: BP 152/104
[2020-06-21 07:20] LABS: BASOPHILS % (AUTO) 0 % (0-1); EOSINOPHILS % (AUTO) 2 % (1-7); LYMPHOCYTES % (AUTO) 19 % (22-44); MEAN CORPUSCULAR HEMOGLOBIN 33.9 pg (27.5-34.5); MEAN CORPUSCULAR HGB CONC 34.4 g/dL (33.2-36.2); MEAN PLATELET VOLUME 10.9 fL (7.4-10.4); MONOCYTES % (AUTO) 7 % (2-9); NEUTROPHILS % (AUTO) 72 % (42-75); RED CELL DISTRIBUTION WIDTH 13.7 % (9.4-14.8)
[2020-06-21] MEDS: SERTRALINE 100MG TABLET PO SCH (07:30)
[2020-06-21 07:34] LABS: ALANINE AMINOTRANSFERASE 229 U/L (12-78); ANION GAP 7 mmol/L (5-15); CALCIUM 8.7 mg/dL (8.5-10.1); CHLORIDE 104 mmol/L (98-107); CREATININE 1.46 mg/dL (0.7-1.3)
[2020-06-21 07:36] LABS: ALKALINE PHOSPHATASE 72 U/L (45-117); TOTAL PROTEIN 6.4 g/dL (6.4-8.2)
[2020-06-21] MEDS: LORazepam 2 MG/ML, 1ML IV PRN ×4 (07:41→23:06)
[2020-06-21] MEDS: ONDANSETRON 2MG/ML, 2ML IVPush PRN (07:42)
[2020-06-21] MEDS: MORPHINE SULFATE 4 MG/ML, 1ML IVPush PRN ×4 (07:44→22:04)
[2020-06-21] MEDS: METOPROLOL SUCCINATE 50 MG TAB.ER.24H PO SCH (07:45)
[2020-06-21] MEDS: THIAMINE 100MG TABLET PO/NG SCH ×2 (07:45→20:36)
[2020-06-21 08:41] LABS: MD SCAN; PLATELET COUNT 43 x10^3/uL (130-400)
[2020-06-21] MEDS: LIDODERM 5% PATCH TD SCH (08:56)
[2020-06-21] MEDS: CLINDAMYCIN PMX 900MG/50ML 50 ML IV SCH ×2 (08:56→16:13)
[2020-06-21] MEDS ORDERED: ORAJEL 7GM TUBE MM PRN (09:00)
[2020-06-21] MEDS: ESOMEPRAZOLE 40 MG IV IVPush SCH ×2 (09:31→22:25)
[2020-06-21] MEDS: METOPROLOL TARTRATE 50 MG TAB PO SCH ×2 (11:55→18:22)
[2020-06-21] MEDS: DIAZEPAM 5 MG TABLET PO SCH ×3 (11:57→20:37)
[2020-06-21] MEDS ORDERED: DIAZEPAM 10 MG TABLET ONE (11:57)
[2020-06-21 13:47] VITALS: BP 109/78
[2020-06-21 22:37] VITALS: BP 119/86
[2020-06-22] VITALS (8 sets, daily range): BP systolic 105–134; BP diastolic 78–89
[2020-06-22] MEDS: METOPROLOL TARTRATE 50 MG TAB PO SCH ×5 (00:11→23:34)
[2020-06-22] MEDS: DIAZEPAM 5 MG TABLET PO SCH ×5 (00:11→20:50)
[2020-06-22] MEDS: CLINDAMYCIN PMX 900MG/50ML 50 ML IV SCH ×4 (00:13→23:34)
[2020-06-22] MEDS: MORPHINE SULFATE 4 MG/ML, 1ML IVPush PRN ×2 (01:52→08:35)
[2020-06-22 05:51] LABS: BASOPHILS % (AUTO) 1 % (0-1); EOSINOPHILS % (AUTO) 2 % (1-7); LYMPHOCYTES % (AUTO) 26 % (22-44); MEAN CORPUSCULAR HEMOGLOBIN 34.1 pg (27.5-34.5); MEAN CORPUSCULAR HGB CONC 34.1 g/dL (33.2-36.2); MEAN PLATELET VOLUME 11.7 fL (7.4-10.4); MONOCYTES % (AUTO) 14 % (2-9); NEUTROPHILS % (AUTO) 57 % (42-75); RED BLOOD COUNT 3.05 x10^6/uL (4.38-5.82); RED CELL DISTRIBUTION WIDTH 13.7 % (9.4-14.8)
[2020-06-22 05:54] LABS: MD NO; PLATELET COUNT 42 x10^3/uL (130-400)
[2020-06-22 05:58] LABS: ALANINE AMINOTRANSFERASE 173 U/L (12-78); ALBUMIN 2.8 g/dL (3.4-5.0); ANION GAP 6 mmol/L (5-15); CALCIUM 8.3 mg/dL (8.5-10.1); CHLORIDE 103 mmol/L (98-107); CREATININE 1.78 mg/dL (0.7-1.3)
[2020-06-22 06:01] LABS: ALKALINE PHOSPHATASE 69 U/L (45-117); BILIRUBIN,TOTAL 0.9 mg/dL (0.2-1.0); TOTAL PROTEIN 6.4 g/dL (6.4-8.2)
[2020-06-22] MEDS: LORazepam 2 MG/ML, 1ML IV PRN (06:26)
[2020-06-22] MEDS: LIDODERM 5% PATCH TD SCH (08:00)
[2020-06-22] MEDS: SERTRALINE 100MG TABLET PO SCH (08:26)
[2020-06-22] MEDS: LACTOBACILLUS CHEW TABLET PO SCH ×3 (08:27→20:49)
[2020-06-22] MEDS: THIAMINE 100MG TABLET PO/NG SCH ×2 (08:27→20:50)
[2020-06-22] MEDS: LACTATED RINGERS 1,000 ML IV SCH (10:20)
[2020-06-22] MEDS: ESOMEPRAZOLE 40 MG IV IVPush SCH ×2 (10:35→20:50)
[2020-06-23 00:21] VITALS: BP 132/90
[2020-06-23] MEDS: LACTATED RINGERS 1,000 ML IV SCH ×2 (03:30→20:20)
[2020-06-23 05:49] LABS: ALANINE AMINOTRANSFERASE 123 U/L (12-78); ALBUMIN 2.5 g/dL (3.4-5.0); ANION GAP 6 mmol/L (5-15); CALCIUM 8.6 mg/dL (8.5-10.1); CHLORIDE 107 mmol/L (98-107)
[2020-06-23] MEDS: DIAZEPAM 5 MG TABLET PO SCH ×4 (05:57→20:23)
[2020-06-23] MEDS: METOPROLOL TARTRATE 50 MG TAB PO SCH ×4 (05:57→23:38)
[2020-06-23 06:16] LABS: ALKALINE PHOSPHATASE 83 U/L (45-117); BILIRUBIN,TOTAL 0.6 mg/dL (0.2-1.0); CREATININE 1.49 mg/dL (0.7-1.3); TOTAL PROTEIN 5.9 g/dL (6.4-8.2)
[2020-06-23 06:56] LABS: BASOPHILS % (AUTO) 1 % (0-1); EOSINOPHILS % (AUTO) 3 % (1-7); LYMPHOCYTES % (AUTO) 24 % (22-44); MEAN CORPUSCULAR HEMOGLOBIN 34.3 pg (27.5-34.5); MEAN CORPUSCULAR HGB CONC 34.7 g/dL (33.2-36.2); MEAN PLATELET VOLUME 10.5 fL (7.4-10.4); MONOCYTES % (AUTO) 18 % (2-9); NEUTROPHILS % (AUTO) 54 % (42-75); PLATELET COUNT 62 x10^3/uL (130-400); RED BLOOD COUNT 2.73 x10^6/uL (4.38-5.82); RED CELL DISTRIBUTION WIDTH 14.3 % (9.4-14.8)
[2020-06-23 07:31] LABS: MD SCAN
[2020-06-23] MEDS: LIDODERM 5% PATCH TD SCH ×2 (08:00→10:10)
[2020-06-23 08:58] VITALS: BP 141/97
[2020-06-23] MEDS: SERTRALINE 100MG TABLET PO SCH (09:00)
[2020-06-23] MEDS: THIAMINE 100MG TABLET PO/NG SCH ×3 (09:00→20:24)
[2020-06-23] MEDS: LACTOBACILLUS CHEW TABLET PO SCH ×3 (09:00→20:23)
[2020-06-23] MEDS: CLINDAMYCIN PMX 900MG/50ML 50 ML IV SCH ×3 (10:09→23:37)
[2020-06-23] MEDS: ESOMEPRAZOLE 40 MG IV IVPush SCH ×2 (10:10→20:24)
[2020-06-23] MEDS: MORPHINE SULFATE 4 MG/ML, 1ML IVPush PRN ×3 (10:39→19:52)
[2020-06-23] MEDS ORDERED: MAGNESIUM SULFATE PMX 2GM/50ML 50 ML IV ONE (11:00)
[2020-06-23] MEDS: CYANOCOBALAMIN 1,000 MCG/ML, 1ML IM SCH (13:28)
[2020-06-23 13:30] VITALS: BP 143/91
[2020-06-23] MEDS ORDERED: MIDAZOLAM 1 MG/ML, 2ML ONE (14:51)
[2020-06-23] MEDS ORDERED: FENTANYL PF 100 MCG/2ML ONE ×2 (14:51→17:43)
[2020-06-23] MEDS ORDERED: EPINEPHRINE 1 MG/ML, 1ML ONE (14:54)
[2020-06-23] MEDS ORDERED: NEOSPORIN OINT. PKT 1 PACKET ONE (14:54)
[2020-06-23] MEDS ORDERED: LIDOCAINE 1%, 20ML ONE (14:54)
[2020-06-23] MEDS ORDERED: CHLORHEXIDINE 15 ML UDC ONE ×2 (15:17→15:29)
[2020-06-23] MEDS ORDERED: CHLORHEXIDINE 15 ML UDC MM ONE (15:30)
[2020-06-23] MEDS ORDERED: LORazepam 2 MG/ML, 1ML IVPush PRN (16:00)
[2020-06-23] MEDS ORDERED: ONDANSETRON 2MG/ML, 2ML IVPush PRN (16:00)
[2020-06-23] MEDS ORDERED: FENTANYL PF 100 MCG/2ML IV PRN (16:00)
[2020-06-23] MEDS ORDERED: MEPERIDINE/PF 25MG/0.5ML IVPush PRN (16:00)
[2020-06-23] MEDS ORDERED: HYDROmorphone 1 MG/ML, 1ML INJ IVPush PRN (16:00)
[2020-06-23] MEDS ORDERED: PROMETHAZINE 25 MG/ML, 1ML IVPush PRN (16:00)
[2020-06-23] MEDS ORDERED: PROPOFOL 10 MG/ML, 20ML ONE (16:05)
[2020-06-23] MEDS ORDERED: SUCCINYLCHOLINE 20 MG/ML, 10ML ONE (16:05)
[2020-06-23] MEDS ORDERED: ROCURONIUM 10MG/ML,5ML ONE (16:05)
[2020-06-23] MEDS ORDERED: LIDOCAINE-MPF 1%, 2ML ONE (16:05)
[2020-06-23] MEDS ORDERED: OXYcodone 5 MG/5 ML ORAL.SOL UDC ONE (17:52)
[2020-06-23 20:00] VITALS: BP 131/87
[2020-06-24] MEDS: MORPHINE SULFATE 4 MG/ML, 1ML IVPush PRN ×2 (00:24→04:01)
[2020-06-24 02:00] VITALS: BP 128/81
[2020-06-24] MEDS ORDERED: DIAZEPAM 10 MG TABLET ONE ×2 (05:28→11:22)
[2020-06-24] MEDS: METOPROLOL TARTRATE 50 MG TAB PO SCH ×4 (05:40→23:18)
[2020-06-24] MEDS: OXYcodone 5 MG/5 ML ORAL.SOL UDC PO PRN ×3 (05:41→21:18)
[2020-06-24 05:49] LABS: BASOPHILS % (AUTO) 2 % (0-1); EOSINOPHILS % (AUTO) 3 % (1-7); LYMPHOCYTES % (AUTO) 29 % (22-44); MEAN CORPUSCULAR HEMOGLOBIN 33.9 pg (27.5-34.5); MEAN CORPUSCULAR HGB CONC 34.1 g/dL (33.2-36.2); MEAN PLATELET VOLUME 11.1 fL (7.4-10.4); MONOCYTES % (AUTO) 19 % (2-9); NEUTROPHILS % (AUTO) 48 % (42-75); PLATELET COUNT 86 x10^3/uL (130-400); RED BLOOD COUNT 2.81 x10^6/uL (4.38-5.82); RED CELL DISTRIBUTION WIDTH 14.5 % (9.4-14.8)
[2020-06-24] MEDS: DIAZEPAM 5 MG TABLET PO SCH ×4 (05:57→21:04)
[2020-06-24 06:02] LABS: MD SCAN
[2020-06-24 06:04] LABS: ALBUMIN 2.5 g/dL (3.4-5.0); ANION GAP 9 mmol/L (5-15); CALCIUM 8.6 mg/dL (8.5-10.1); CHLORIDE 107 mmol/L (98-107)
[2020-06-24 06:08] LABS: ALANINE AMINOTRANSFERASE 102 U/L (12-78); ALKALINE PHOSPHATASE 75 U/L (45-117); BILIRUBIN,TOTAL 0.5 mg/dL (0.2-1.0); CREATININE 1.37 mg/dL (0.7-1.3); TOTAL PROTEIN 6.2 g/dL (6.4-8.2)
[2020-06-24 07:45] VITALS: BP 119/64
[2020-06-24] MEDS: LIDODERM 5% PATCH TD SCH (08:00)
[2020-06-24] MEDS: CYANOCOBALAMIN 1,000 MCG/ML, 1ML IM SCH (08:27)
[2020-06-24] MEDS: ESOMEPRAZOLE 40 MG IV IVPush SCH ×2 (08:27→22:30)
[2020-06-24] MEDS: CLINDAMYCIN PMX 900MG/50ML 50 ML IV SCH ×3 (08:27→23:18)
[2020-06-24] MEDS: SERTRALINE 100MG TABLET PO SCH (08:28)
[2020-06-24] MEDS: LACTOBACILLUS CHEW TABLET PO SCH ×3 (08:28→22:30)
[2020-06-24] MEDS: THIAMINE 100MG TABLET PO/NG SCH ×2 (08:28→22:30)
[2020-06-24] MEDS: LORazepam 0.5MG TABLET PO PRN ×2 (08:32→23:18)
[2020-06-24 13:29] VITALS: BP 129/88
[2020-06-24] MEDS: LACTATED RINGERS 1,000 ML IV SCH (16:00)
[2020-06-24 20:00] VITALS: BP 134/89
[2020-06-25 02:56] VITALS: BP 118/80
[2020-06-25] MEDS: DIAZEPAM 5 MG TABLET PO SCH (06:19)
[2020-06-25] MEDS: METOPROLOL TARTRATE 50 MG TAB PO SCH ×3 (06:19→17:22)
[2020-06-25 07:20] VITALS: BP 133/83
[2020-06-25] MEDS: LACTATED RINGERS 1,000 ML IV SCH (08:00)
[2020-06-25] MEDS: LIDODERM 5% PATCH TD SCH (08:00)
[2020-06-25] MEDS: CYANOCOBALAMIN 1,000 MCG/ML, 1ML IM SCH (08:21)
[2020-06-25] MEDS: LACTOBACILLUS CHEW TABLET PO SCH ×3 (08:22→22:22)
[2020-06-25] MEDS: ESOMEPRAZOLE 40 MG IV IVPush SCH ×2 (08:22→22:23)
[2020-06-25] MEDS: CLINDAMYCIN PMX 900MG/50ML 50 ML IV SCH ×2 (08:22→16:36)
[2020-06-25] MEDS: THIAMINE 100MG TABLET PO/NG SCH ×2 (08:22→22:23)
[2020-06-25] MEDS: OXYcodone 5 MG/5 ML ORAL.SOL UDC PO PRN ×2 (08:23→22:24)
[2020-06-25 08:41] LABS: BASOPHILS % (AUTO) 1 % (0-1); EOSINOPHILS % (AUTO) 4 % (1-7); LYMPHOCYTES % (AUTO) 29 % (22-44); MEAN CORPUSCULAR HEMOGLOBIN 34.1 pg (27.5-34.5); MEAN CORPUSCULAR HGB CONC 34.1 g/dL (33.2-36.2); MEAN PLATELET VOLUME 11.3 fL (7.4-10.4); MONOCYTES % (AUTO) 18 % (2-9); NEUTROPHILS % (AUTO) 49 % (42-75); PLATELET COUNT 96 x10^3/uL (130-400); RED BLOOD COUNT 2.79 x10^6/uL (4.38-5.82); RED CELL DISTRIBUTION WIDTH 14.8 % (9.4-14.8)
[2020-06-25 08:43] LABS: MD NO
[2020-06-25 08:51] LABS: ALANINE AMINOTRANSFERASE 76 U/L (12-78); ALBUMIN 2.4 g/dL (3.4-5.0); ANION GAP 7 mmol/L (5-15); CALCIUM 8.4 mg/dL (8.5-10.1); CHLORIDE 109 mmol/L (98-107)
[2020-06-25 08:54] LABS: ALKALINE PHOSPHATASE 75 U/L (45-117); BILIRUBIN,TOTAL 0.6 mg/dL (0.2-1.0); CREATININE 1.26 mg/dL (0.7-1.3); TOTAL PROTEIN 5.8 g/dL (6.4-8.2)
[2020-06-25 13:15] VITALS: BP 148/86
[2020-06-25 19:28] VITALS: BP 143/84
[2020-06-26 00:52] VITALS: BP 136/88
[2020-06-26] MEDS: METOPROLOL TARTRATE 50 MG TAB PO SCH ×3 (01:11→12:19)
[2020-06-26] MEDS: LACTATED RINGERS 1,000 ML IV SCH (04:04)
[2020-06-26] MEDS: CLINDAMYCIN PMX 900MG/50ML 50 ML IV SCH ×2 (04:04→12:19)
[2020-06-26 06:14] VITALS: BP 142/94
[2020-06-26] MEDS: OXYcodone 5 MG/5 ML ORAL.SOL UDC PO PRN (06:21)
[2020-06-26 07:05] VITALS: BP 144/93
[2020-06-26] MEDS: LIDODERM 5% PATCH TD SCH (07:53)
[2020-06-26] MEDS: THIAMINE 100MG TABLET PO/NG SCH (08:59)
[2020-06-26] MEDS: LACTOBACILLUS CHEW TABLET PO SCH (08:59)
[2020-06-26] MEDS: ESOMEPRAZOLE 40 MG IV IVPush SCH (09:00)
[2020-06-26] MEDS: CYANOCOBALAMIN 1,000 MCG/ML, 1ML IM SCH (09:00)
[2020-06-26] MEDS ORDERED: ACID1TAB7 PO (15:07)
[2020-06-26] MEDS ORDERED: CLIN300C9 PO (15:07)
[2020-06-26] MEDS ORDERED: OXYC5SOL8 PO ×2 (15:07)
[2020-06-27] MEDS ORDERED: OXYC5TAB98 PO (11:09)
== END 2020-06-26 16:00 | disposition home or self-care (01) | DRG 137 ==
LOC: ED 18:47 → EDIP 19:57 → 5SO 21:20 → DCLOUNGE 06-26 15:54
PROVIDERS: ADMIT Family Medicine; ATTEND Hospitalist
PROC: 30233R1 Transfusion of Nonautologous Platelets into Peripheral Vein, Percutaneous Approach (ICD-10-PCS; 2020-06-22)
PROC: 0CDXXZ1 Extraction of Lower Tooth, Multiple, External Approach (ICD-10-PCS; 2020-06-23)
PROC: 0C940ZZ Drainage of Buccal Mucosa, Open Approach (ICD-10-PCS; principal; 2020-06-23 15:30)
DX: S02.5XXA Fracture of tooth (traumatic), initial encounter for closed fracture (principal); N17.0 Acute kidney failure with tubular necrosis; F10.239 Alcohol dependence with withdrawal, unspecified; K02.9 Dental caries, unspecified; Z20.822 Contact with and (suspected) exposure to COVID-19; Z88.0 Allergy status to penicillin; F10.229 Alcohol dependence with intoxication, unspecified; F32.9 Major depressive disorder, single episode, unspecified; F03.90 Unspecified dementia, unspecified severity, without behavioral disturbance, psychotic disturbance, mood disturbance, and anxiety; D69.6 Thrombocytopenia, unspecified; F12.90 Cannabis use, unspecified, uncomplicated; F41.9 Anxiety disorder, unspecified; H54.61 Unqualified visual loss, right eye, normal vision left eye; I10 Essential (primary) hypertension; K04.7 Periapical abscess without sinus; K70.10 Alcoholic hepatitis without ascites; Z80.1 Family history of malignant neoplasm of trachea, bronchus and lung; W18.39XA Other fall on same level, initial encounter; Y93.89 Activity, other specified; Y92.89 Other specified places as the place of occurrence of the external cause; Y99.8 Other external cause status
CPT/HCPCS: 36415; 70110; 99285; J3490; 70486; 76700; 80048; 80053; 80074; 80076; 80307; 81001; 82436; 82550; 82570; 82607; 83690; 83735; 84100; 84133; 84300; 84443; 85014; 85018; 85025; 85610; 87040; 87635; G0378; J0171; J2250; J2405; J2704; J3010; J3411; J3475; J0330; J2060; J2270; J3420; J7030; J7120; P9035

== ENCOUNTER 2020-06-30 15:53 | Inpatient (IN) | payer MEDICAID ==
[~2020-06-30] VITALS: Ht 177.8 cm; Wt 113.8 kg
[~2020-06-30 15:53] MED LIST changes: +ACID1TAB7 PO; +CLIN300C9 PO; -FOLI-17 PO; +FOLI1TAB32 PO; +OXYC5SOL8 PO; +OXYC5TAB98 PO
--- NOTE | 2020-06-30 16:33 | NUR ---
DR LIVINGSTON AT BEDSIDE TO EVAL PT
--- NOTE | 2020-06-30 16:39 | NUR ---
CONTACT WITH PT. PT ARRIVED VIA EMS FROM [facility]. PT HERE R/T "TAYA LEG SWELLING/PAIN" PT STATES SWELLING BEGAN "YESTERDAY" PT ALSO WITH C/O BELLY PAIN AND MOUTH PAIN R/T RECENT 2 TEETH EXTRACTIONS. PT ON MONITOR. SR PER MONITOR, AUTO BP AND PULSE OX IN PLACE. PTS MOTHER JUN 2019. 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
[2020-06-30] MEDS ORDERED: HYDR-3343 PO (16:46)
--- NOTE | 2020-06-30 16:46 | NUR ---
PT STATES "ONLY TAKE BLOOD PRESSURE MEDS"
[2020-06-30] MEDS ORDERED: SODIUM CHLORIDE FLUSH 10ML SYR IVF ONE (17:00)
[2020-06-30] MEDS ORDERED: SODIUM CHLORIDE 0.9% 1,000 ML IV ONE (17:00)
[2020-06-30 17:17] LABS: BASOPHILS % (AUTO) 2 % (0-1); EOSINOPHILS % (AUTO) 1 % (1-7); LYMPHOCYTES % (AUTO) 34 % (22-44); MEAN CORPUSCULAR HEMOGLOBIN 33.5 pg (27.5-34.5); MEAN CORPUSCULAR HGB CONC 33.3 g/dL (33.2-36.2); MEAN PLATELET VOLUME 10.8 fL (7.4-10.4); MONOCYTES % (AUTO) 9 % (2-9); NEUTROPHILS % (AUTO) 53 % (42-75); PLATELET COUNT 237 x10^3/uL (130-400); RED BLOOD COUNT 2.95 x10^6/uL (4.38-5.82); RED CELL DISTRIBUTION WIDTH 15.3 % (9.4-14.8)
[2020-06-30 17:27] LABS: ALANINE AMINOTRANSFERASE 93 U/L (12-78); ALBUMIN 2.6 g/dL (3.4-5.0); ANION GAP 11 mmol/L (5-15); CALCIUM 8.2 mg/dL (8.5-10.1); CHLORIDE 119 mmol/L (98-107); CREATININE 2.21 mg/dL (0.7-1.3)
--- NOTE | 2020-06-30 17:29 | NUR ---
PT IS VERY TREMULOUS, STATES HE DRINKS ABOUT A FIFTH OF VODKA A DAY. LAST DRINK WAS EARLIER TODAY. PT IS COMPLAINING OF PAIN ALL OVER AND THE WORST PAIN IN HIS MOUTH. WILL NOTIFY MD. CALL LIGHT WITHIN REACH.
[2020-06-30 17:30] LABS: PROTHROMBIN TIME 10.7 Seconds (9.6-11.5)
[2020-06-30 17:33] LABS: ALKALINE PHOSPHATASE 104 U/L (45-117); BILIRUBIN,TOTAL 0.2 mg/dL (0.2-1.0); TOTAL PROTEIN 6.1 g/dL (6.4-8.2)
[2020-06-30] MEDS ORDERED: LORazepam 2 MG/ML, 1ML ONE (17:35)
--- NOTE | 2020-06-30 17:38 | NUR ---
PER DR. LIVINGSTON, OK TO GIVE PT 1MG IV ATIVAN. 5 RIGHTS USED TO ADMINISTER,.
--- NOTE | 2020-06-30 17:52 | NUR ---
PER DR HARRISON, WILL BOLUS 1L LR THEN SWITCH TO D5 AFTER. PROVIDED PT WITH 2 BOTTLES OF WATER HE REQUESTED TO HELP HIM GIVE US A URINE SPECIMEN.
[2020-06-30 17:55] LABS: ACETONE, SERUM Negative (Negative)
[2020-06-30] MEDS ORDERED: LORazepam 2 MG/ML, 1ML IV ONE (18:00)
[2020-06-30] MEDS ORDERED: LACTATED RINGERS 1,000 ML IVBOLUS ONE (18:00)
[2020-06-30] MEDS ORDERED: DEXTROSE 5% 1,000 ML IV SCH (18:00)
--- NOTE | 2020-06-30 18:42 | NUR ---
PT SLEEPING COMFORTABLY IN BED, RESPIRATIONS EVEN AND UNLABORED. CALL LIGHT WITHIN REACH.
[2020-06-30 18:50] LABS: MD SCAN
--- NOTE | 2020-06-30 18:58 | NUR ---
report recieved from lin NOVAK
--- NOTE | 2020-06-30 19:05 | NUR ---
PT SLEEPING, WAKES UP EASILY, ABLE TO URINATE FOR UA.
--- NOTE | 2020-06-30 19:11 | NUR ---
ua collected and sent to lab
[2020-06-30 19:14] LABS: MICROSCOPIC NOT IND
[2020-06-30 19:26] LABS: CHLORIDE,URINE RANDOM 47 mmol/L; POTASSIUM,URINE RANDOM 14 mmol/L; SODIUM,URINE RANDOM 48 mmol/L
[2020-06-30] MEDS ORDERED: BISACODYL 10 MG SUPP PR PRN (19:30)
[2020-06-30] MEDS ORDERED: POLYETHYLENE GLYCOL 17 GM PACKET PO PRN (19:30)
[2020-06-30] MEDS ORDERED: hydrALAzine 20 MG/ML, 1ML IVPush PRN (19:30)
[2020-06-30] MEDS ORDERED: ONDANSETRON ODT 4 MG PO PRN (19:30)
[2020-06-30] MEDS ORDERED: morphine SULFATE 10 MG/ML, 1ML IVPush PRN (19:30)
[2020-06-30] MEDS ORDERED: PROMETHAZINE 25 MG/ML, 1ML IM PRN (19:30)
[2020-06-30] MEDS ORDERED: ONDANSETRON 2MG/ML, 2ML IVPush PRN (19:30)
[2020-06-30] MEDS ORDERED: DOCUSATE 100 MG CAPSULE PO PRN (19:30)
--- NOTE | 2020-06-30 19:50 | NUR ---
FIRST ATTEMPT FOR REPORT, RN TO CALL BACK
[2020-06-30] MEDS ORDERED: LORazepam 2 MG/ML, 1ML IV PRN ×4 (20:00)
[2020-06-30] MEDS ORDERED: LORazepam 0.5MG TABLET PO PRN (20:00)
[2020-06-30] MEDS ORDERED: LORazepam 1MG TABLET PO PRN ×4 (20:00)
--- NOTE | 2020-06-30 20:28 | NUR ---
REPORT GIVEN TO RAYSHAWN NOVAK
--- NOTE | 2020-06-30 20:29 | NUR ---
PT STILL SLEEPING, RESP EVEN AND UNLABORED.
[2020-06-30 20:56] VITALS: BP 126/82
[2020-06-30] MEDS: HEPARIN 5,000 UNITS/ML, 1ML SQ SCH (21:54)
[2020-06-30] MEDS: D5%-0.45% NACL 1,000 ML IV SCH (22:09)
[2020-06-30] MEDS: OXYcodone IR 5MG TABLET PO PRN (23:14)
[2020-07-01 00:53] VITALS: BP 133/84
[2020-07-01] MEDS: OXYcodone IR 5MG TABLET PO PRN ×4 (03:54→20:22)
[2020-07-01] MEDS: HEPARIN 5,000 UNITS/ML, 1ML SQ SCH ×3 (03:54→20:21)
[2020-07-01 05:38] LABS: BASOPHILS % (AUTO) 0 % (0-1); EOSINOPHILS % (AUTO) 1 % (1-7); LYMPHOCYTES % (AUTO) 36 % (22-44); MEAN CORPUSCULAR HEMOGLOBIN 33.8 pg (27.5-34.5); MEAN CORPUSCULAR HGB CONC 33.5 g/dL (33.2-36.2); MEAN PLATELET VOLUME 10.7 fL (7.4-10.4); MONOCYTES % (AUTO) 10 % (2-9); NEUTROPHILS % (AUTO) 53 % (42-75); PLATELET COUNT 190 x10^3/uL (130-400); RED BLOOD COUNT 2.74 x10^6/uL (4.38-5.82); RED CELL DISTRIBUTION WIDTH 14.9 % (9.4-14.8)
[2020-07-01] MEDS: LORazepam 2 MG/ML, 1ML IV PRN ×4 (05:43→20:21)
[2020-07-01 05:48] LABS: MD NO
[2020-07-01 05:52] LABS: INTERNATIONAL NORMALIZED RATIO 1.02 (0.93-1.1); PROTHROMBIN TIME 10.9 Seconds (9.6-11.5)
[2020-07-01 06:05] LABS: ALBUMIN 2.6 g/dL (3.4-5.0); ANION GAP 6 mmol/L (5-15); CHLORIDE 119 mmol/L (98-107)
[2020-07-01 06:14] LABS: ALANINE AMINOTRANSFERASE 86 U/L (12-78); ALKALINE PHOSPHATASE 73 U/L (45-117); BILIRUBIN,TOTAL 0.4 mg/dL (0.2-1.0); CHOLESTEROL, TOTAL 182 mg/dL (140-239); CREATININE 1.83 mg/dL (0.7-1.3); HDL CHOL % 25 % (26-37); HDL CHOLESTEROL (DIRECT) 45 mg/dL (40-60); LDL CHOLESTEROL,CALCULATED 107 mg/dL (54-169); LDL/HDL RATIO 2.4 (0.5-3.0); TOTAL PROTEIN 5.8 g/dL (6.4-8.2); TRIGLYCERIDES 152 mg/dL (50-200); VLDL CHOLESTEROL 30 mg/dL (0-25)
[2020-07-01 06:55] VITALS: BP 126/75
[2020-07-01] MEDS: D5%-0.45% NACL 1,000 ML IV SCH (08:45)
[2020-07-01] MEDS: MULTIVITAMIN 1 TABLET PO SCH (08:46)
[2020-07-01] MEDS ORDERED: ACETAMINOPHEN 325 MG TABLET PO PRN (11:30)
[2020-07-01 12:19] LABS: ANION GAP 8 mmol/L (5-15); CALCIUM 7.9 mg/dL (8.5-10.1); CHLORIDE 116 mmol/L (98-107); CREATININE 1.81 mg/dL (0.7-1.3)
[2020-07-01 14:09] VITALS: BP 150/93
[2020-07-01] MEDS ORDERED: ICN CLONIDINE 4MCG/ML ORAL.DIL PO PRN (15:00)
[2020-07-01] MEDS: maalox/diphenh/lido/sucralfate 5 ML PO PRN (17:05)
[2020-07-01] MEDS: METOPROLOL SUCCINATE 50 MG TAB.ER.24H PO SCH (17:05)
[2020-07-01] MEDS: OMEPRAZOLE 20 MG CAPSULE.DR PO SCH (17:05)
[2020-07-01 19:38] VITALS: BP 161/105
[2020-07-01] MEDS ORDERED: METOPROLOL SUCCINATE 50 MG TAB.ER.24H PO SCH (21:00)
[2020-07-02] MEDS: LORazepam 2 MG/ML, 1ML IV PRN ×4 (00:43→17:31)
[2020-07-02] MEDS: OXYcodone IR 5MG TABLET PO PRN ×5 (00:43→20:10)
[2020-07-02] MEDS: maalox/diphenh/lido/sucralfate 5 ML PO PRN (00:57)
[2020-07-02 01:25] VITALS: BP 131/90
[2020-07-02] MEDS: OMEPRAZOLE 20 MG CAPSULE.DR PO SCH ×2 (04:56→15:38)
[2020-07-02] MEDS: HEPARIN 5,000 UNITS/ML, 1ML SQ SCH ×3 (04:56→20:24)
[2020-07-02 06:17] LABS: BASOPHILS % (AUTO) 2 % (0-1); EOSINOPHILS % (AUTO) 1 % (1-7); LYMPHOCYTES % (AUTO) 42 % (22-44); MEAN CORPUSCULAR HEMOGLOBIN 34.2 pg (27.5-34.5); MEAN CORPUSCULAR HGB CONC 34.2 g/dL (33.2-36.2); MEAN PLATELET VOLUME 10.7 fL (7.4-10.4); MONOCYTES % (AUTO) 8 % (2-9); NEUTROPHILS % (AUTO) 48 % (42-75); PLATELET COUNT 153 x10^3/uL (130-400); RED BLOOD COUNT 2.67 x10^6/uL (4.38-5.82); RED CELL DISTRIBUTION WIDTH 15.1 % (9.4-14.8)
[2020-07-02 06:20] LABS: MD NO
[2020-07-02 06:27] LABS: ALANINE AMINOTRANSFERASE 64 U/L (12-78); ALBUMIN 2.4 g/dL (3.4-5.0); ANION GAP 5 mmol/L (5-15); CHLORIDE 116 mmol/L (98-107); CREATININE 1.52 mg/dL (0.7-1.3)
[2020-07-02 06:29] LABS: ALKALINE PHOSPHATASE 73 U/L (45-117); BILIRUBIN,TOTAL 0.7 mg/dL (0.2-1.0); TOTAL PROTEIN 5.7 g/dL (6.4-8.2)
[2020-07-02 07:37] VITALS: BP 145/88
[2020-07-02] MEDS: METOPROLOL SUCCINATE 50 MG TAB.ER.24H PO SCH (08:41)
[2020-07-02] MEDS: MULTIVITAMIN 1 TABLET PO SCH (08:41)
[2020-07-02] MEDS: FUROSEMIDE 40 MG/4 ML IV SCH (11:16)
[2020-07-02 12:22] VITALS: BP 124/85
[2020-07-02] MEDS: GABAPENTIN 100 MG CAPSULE PO SCH ×2 (17:31→20:05)
[2020-07-02 20:13] VITALS: BP 121/81
[2020-07-03] MEDS: OXYcodone IR 5MG TABLET PO PRN ×5 (00:09→20:07)
[2020-07-03 01:11] VITALS: BP 106/69
[2020-07-03] MEDS: HEPARIN 5,000 UNITS/ML, 1ML SQ SCH ×3 (04:36→20:05)
[2020-07-03 05:49] LABS: BASOPHILS % (AUTO) 2 % (0-1); EOSINOPHILS % (AUTO) 2 % (1-7); LYMPHOCYTES % (AUTO) 39 % (22-44); MEAN CORPUSCULAR HEMOGLOBIN 34.2 pg (27.5-34.5); MEAN CORPUSCULAR HGB CONC 34.1 g/dL (33.2-36.2); MEAN PLATELET VOLUME 10.8 fL (7.4-10.4); MONOCYTES % (AUTO) 8 % (2-9); NEUTROPHILS % (AUTO) 50 % (42-75); PLATELET COUNT 160 x10^3/uL (130-400); RED BLOOD COUNT 2.68 x10^6/uL (4.38-5.82); RED CELL DISTRIBUTION WIDTH 15.2 % (9.4-14.8)
[2020-07-03 05:50] LABS: MD NO
[2020-07-03 05:59] LABS: ANION GAP 6 mmol/L (5-15); CALCIUM 8.3 mg/dL (8.5-10.1); CHLORIDE 112 mmol/L (98-107); CREATININE 1.52 mg/dL (0.7-1.3)
[2020-07-03] MEDS: OMEPRAZOLE 20 MG CAPSULE.DR PO SCH ×2 (05:59→16:04)
[2020-07-03] MEDS ORDERED: MAGNESIUM SULFATE PMX 4GM/100M 100 ML IVPB ONE (08:30)
[2020-07-03] MEDS: FUROSEMIDE 40 MG/4 ML IV SCH (09:23)
[2020-07-03] MEDS: GABAPENTIN 100 MG CAPSULE PO SCH ×3 (09:23→20:04)
[2020-07-03] MEDS: MULTIVITAMIN 1 TABLET PO SCH (09:23)
[2020-07-03] MEDS: METOPROLOL SUCCINATE 50 MG TAB.ER.24H PO SCH (09:24)
[2020-07-03 09:27] VITALS: BP 113/76
[2020-07-03 14:37] VITALS: BP 114/75
[2020-07-03 18:53] VITALS: BP 116/75
[2020-07-04] MEDS: OXYcodone IR 5MG TABLET PO PRN ×2 (00:22→05:56)
[2020-07-04 01:51] VITALS: BP 111/65
[2020-07-04] MEDS: maalox/diphenh/lido/sucralfate 5 ML PO PRN (04:25)
[2020-07-04] MEDS: HEPARIN 5,000 UNITS/ML, 1ML SQ SCH (04:29)
[2020-07-04 05:57] LABS: ANION GAP 9 mmol/L (5-15); CALCIUM 8.5 mg/dL (8.5-10.1); CHLORIDE 111 mmol/L (98-107); CREATININE 1.52 mg/dL (0.7-1.3)
[2020-07-04] MEDS: OMEPRAZOLE 20 MG CAPSULE.DR PO SCH (06:00)
[2020-07-04 06:39] VITALS: BP 105/70
[2020-07-04] MEDS ORDERED: FURO40TA6 PO (07:19)
[2020-07-04] MEDS ORDERED: GABA-826 PO (07:19)
[2020-07-04] MEDS: GABAPENTIN 100 MG CAPSULE PO SCH (08:43)
[2020-07-04] MEDS: MULTIVITAMIN 1 TABLET PO SCH (08:43)
[2020-07-04] MEDS: METOPROLOL SUCCINATE 50 MG TAB.ER.24H PO SCH (08:45)
[2020-07-04] MEDS ORDERED: FUROSEMIDE 40 MG TABLET PO SCH (09:00)
== END 2020-07-04 11:25 | disposition home or self-care (01) | DRG 438 ==
LOC: ED 17:11 → EDIP 18:03 → 4WST 20:54 → DCLOUNGE 07-04 11:19
PROVIDERS: ADMIT Internal Medicine; ATTEND Hospitalist
DX: K85.90 Acute pancreatitis without necrosis or infection, unspecified (principal); E43 Unspecified severe protein-calorie malnutrition; N17.0 Acute kidney failure with tubular necrosis; E87.0 Hyperosmolality and hypernatremia; F10.139 Alcohol abuse with withdrawal, unspecified; F32.9 Major depressive disorder, single episode, unspecified; F41.9 Anxiety disorder, unspecified; I10 Essential (primary) hypertension; K70.9 Alcoholic liver disease, unspecified; I95.9 Hypotension, unspecified; R60.0 Localized edema; Z88.0 Allergy status to penicillin; Z68.36 Body mass index [BMI] 36.0-36.9, adult; Z80.3 Family history of malignant neoplasm of breast; Z81.8 Family history of other mental and behavioral disorders
CPT/HCPCS: 36415; 71045; 80048; 80053; 80061; 80320; 81003; 82010; 82140; 82436; 82570; 83036; 83605; 83690; 83735; 83880; 83935; 84100; 84133; 84300; 84443; 85025; 85610; 93005; 93306; 96361; 96374; 99291; G0378; J1644; J1940; G0480; J2060; J3475; J7030; J7120

== ENCOUNTER 2020-07-08 20:16 | Inpatient (IN) | payer MEDICAID ==
[~2020-07-08] VITALS: Ht 177.8 cm; Wt 111.0 kg
[~2020-07-08 20:16] MED LIST changes: +FURO40TA6 PO; +GABA-826 PO; +HYDR-3343 PO
--- NOTE | 2020-07-08 20:33 | NUR ---
pt bib [facility] to room 16 and placed on cr monitor. MD to bedside to eval pt, and he is awake and alert, and discussing complaints at this time. piv to left hand 22g, per EMS.
[2020-07-08 21:06] LABS: MEAN CORPUSCULAR HEMOGLOBIN 33.4 pg (27.5-34.5); MEAN CORPUSCULAR HGB CONC 33.1 g/dL (33.2-36.2); MEAN PLATELET VOLUME 10.9 fL (7.4-10.4); PLATELET COUNT 193 x10^3/uL (130-400); RED BLOOD COUNT 2.98 x10^6/uL (4.38-5.82)
[2020-07-08] MEDS ORDERED: MAGNESIUM SULFATE 1 GM/2 ML IVPush ONE (21:06)
[2020-07-08] MEDS ORDERED: AMIODARONE 50 MG/ML, 3ML ONE (21:06)
--- NOTE | 2020-07-08 21:10 | NUR ---
walking by room, pt is shaking in the bed and monitor shows what appears VTach. MD's called emergently to bedside, and code cart brought to room, pt placed on defib pads, and staff to room. vtach lasted approximately 5min, maintained conscioussness, and bp stable, see v/s. piv's x2 started to left EJ and to left AC. flush well, and charted. Amiodarone bolus given, and gtt started per EMAR. Mag Sulfate gtt to replenish has started. Pt moved to trauma 3 at 2140 for advanced care.
[2020-07-08] MEDS ORDERED: MAGNESIUM SULFATE/D5W 100 ML ONE (21:17)
[2020-07-08 21:18] LABS: ALANINE AMINOTRANSFERASE 63 U/L (12-78); ALBUMIN 2.5 g/dL (3.4-5.0); ANION GAP 9 mmol/L (5-15); CALCIUM 8.1 mg/dL (8.5-10.1); CHLORIDE 120 mmol/L (98-107); CREATININE 1.12 mg/dL (0.7-1.3)
[2020-07-08 21:21] LABS: INTERNATIONAL NORMALIZED RATIO 1.01 (0.93-1.1); PROTHROMBIN TIME 10.8 Seconds (9.6-11.5)
[2020-07-08 21:22] LABS: ALKALINE PHOSPHATASE 78 U/L (45-117); BILIRUBIN,TOTAL 0.2 mg/dL (0.2-1.0); TOTAL PROTEIN 6.5 g/dL (6.4-8.2)
[2020-07-08] MEDS ORDERED: LORazepam 2 MG/ML, 1ML ONE ×2 (21:28→22:49)
[2020-07-08] MEDS ORDERED: LORazepam 2 MG/ML, 1ML IVPush ONE ×2 (21:30→23:00)
[2020-07-08] MEDS ORDERED: FILTER 0.22 MICRON FOR AMIODARONE IV PRN (21:30)
[2020-07-08] MEDS ORDERED: AMIODARONE 450 MG in DEXTROSE 5% 241 ML IV PRN (21:30)
[2020-07-08] MEDS ORDERED: AMIODARONE 50 MG/ML, 3ML IVPush ONE (21:30)
[2020-07-08] MEDS ORDERED: MAGNESIUM SULFATE/D5W 100 ML IVPB ONE (21:30)
--- NOTE | 2020-07-08 21:30 | NUR ---
SCARLET BURGOS AT THE BEDSIDE TO ASSIST THE PRIMARY RN AND WILL ASSUME CARE OF THE PT. PT. IS A & O X 4 WITH A GCS OF 15. IT WAS REPORTED THAT THE PT. HAD A RUN OF V-TACH. DR. BRAMBILA IS AT THE BEDSIDE. PT. HAS ONE IV IN PLACE FROM THE FIELD IN HIS LEFT WRIST, #22G. RN TU PLACED A #20G IN THE PT.'S LEJ AND A #22G IN HIS LEFT UPPER ARM. PT. WAS MEDICATED FOR HIS ARRHYTHMIA AND GIVEN ATIVAN TO MANAGE HIS TREMORS. PT.'S MEDICATIONS ARE INFUSING ON THE PUMP. PT.'S LUNGS ARE CTA. MM ARE PINK AND MOIST WITH PULSES +2 THROUGHOUT. PT.'S CAP REFILL IS BRISK, LESS THAN 2 SECONDS. A REPEAT 12 LEAD EKG WAS DONE. PT. IS NOW SINUS ON THE MONITOR. S1 S2 NOTED WITHOUT MURMURS, RUBS OR GALLOPS. PT.'S PULSES ARE + 2 THROUGHOUT. PT.'S ABD. IS SOFT AND ROUND WITH BS + X 4 QUADS. PT.'S UPPER EXTREMITIES HAVE +1 EDEMA AND PT.'S LOWER EXTREMITIES HAVE +3 PITTING EDEMA. PT. WAS MOVED TO TRAUMA 3. HOB IS ELEVATED. PT. HAS THE PACER PADS IN PLACE AND THE CP MONITOR IS ON. VSS. PT. WAS COVERED WITH THE BLANKET AND THE PLAN OF CARE WAS DISCUSSED. SIDERAILS ARE UP X 2 WITH THE CALL LIGHT IN PLACE.
[2020-07-08 21:33] LABS: MD YES
[2020-07-08 21:37] LABS: ANISOCYTOSIS 1+; BAND#(MANUAL) 0.06 x10^3/uL; BANDS%(MANUAL) 1 % (0-7); BASOS#(MANUAL) 0.06 x10^3/uL (0-0.1); BASOS% (MANUAL) 1 % (0-1); EOS#(MANUAL) 0.12 x10^3/uL (0.0-0.4); EOS% (MANUAL) 2 % (1-7); LYMPH#(MANUAL) 3.13 x10^3/uL (1-3.4); LYMPHS% (MANUAL) 54 % (22-44); MONOS#(MANUAL) 0.41 x10^3/uL (0.3-2.7); MONOS% (MANUAL) 7 % (2-9); REACTIVE LYMPHS # (MANUAL) 0.12 x10^3/uL (0-0); REACTIVE LYMPHS % (MANUAL) 2 % (0-0); SEG#(MANUAL) 1.91 x10^3/uL (1.8-6.8); SEGS% (MANUAL) 33 % (42-75)
[2020-07-08 21:38] LABS: <PLATELET ESTIMATE> ADEQUATE; LARGE PLATELETS 1+
[2020-07-08] MEDS ORDERED: HYDROmorphone 2 MG/ML, 1ML ONE (22:09)
--- NOTE | 2020-07-08 22:15 | NUR ---
PT. HAS C/O 02/04 PAIN. DISCUSSED WITH JESÚS TEJADA. PT. WAS MEDICATED FOR PAIN ORDERED. PT. REMAINS IN A SINUS RHYTHM ON THE MONITOR. PT.'S VITALS ARE STABLE. PT.'S HOB IS ELEVATED AND THE SIDERAILS REMAIN UP X 2. CALL LIGHT IS IN PLACE. PT. C/O DENTALGIA. DISCUSSED PT.'S WARM LOWER EXTREMITIES WITH DR. BRAMBILA AND DENTALGIA.
[2020-07-08] MEDS ORDERED: HYDROmorphone 1 MG/ML, 1ML INJ IV ONE (22:30)
--- NOTE | 2020-07-08 22:38 | NUR ---
TP RN: PT NOTED TO BE 80% ON ROOM AIR ON MONITOR. UPON ENTRY INTO ROOM PT AWAKE AND TALKING TO THIS RN, PT PLACED ON 2L O2 VIA NASAL CANNULA. O2 SAT NOW 98%. PT TOLERATING WELL. NO ADDITIONAL NEEDS AT HIS TIME.
--- NOTE | 2020-07-08 22:45 | NUR ---
PT. IS RESTING AT THIS TIME. VSS. PT. REPORTS RELIEF FROM PAIN MEDS.
--- NOTE | 2020-07-08 22:53 | NUR ---
PT. IS STARTING TO SHAKE AND STATES HE BELIEVES HE IS WITHDRAWING FROM ALCOHOL. PT. WAS MEDICATED ORDERED.
[2020-07-08] MEDS ORDERED: MAGNESIUM SULFATE 1 GM, THIAMINE 100 MG, FOLIC ACID 1 MG in SODIUM CHLORIDE 0.9% 1,000 ML IV ONE (23:00)
--- NOTE | 2020-07-08 23:58 | NUR ---
PT. HAD FURTHER C/O LOWER EXTREMITY PAIN. JESÚS TEJADA WENT TO THE BEDSIDE TO RE-EVALUATE THE PT. AND INFORMED HIM THAT THE ADMITTING PHYSICIAN WILL ADDRESS HIS PAIN THAT HE HAD RECEIVED NARCOTIC PAIN MEDS WITHIN THE LAST 90 MINUTES WELL ATIVAN. PT. VERBALIZED UNDERSTANDING. PT. REPORT WAS CALLED TO JODY NOVAK. PT. IS READY FOR TRANSPORT. VSS.
--- NOTE | 2020-07-09 00:26 | NUR ---
HOSPITALIST FINISHED AT THE BEDSIDE. PT. IS READY FOR TRANSPORT.
[2020-07-09] MEDS ORDERED: ACETAMINOPHEN 325 MG TABLET PO PRN (00:30)
[2020-07-09] MEDS ORDERED: PROMETHAZINE 25 MG/ML, 1ML IM PRN (00:30)
[2020-07-09] MEDS ORDERED: AMIODARONE 450 MG in DEXTROSE 5% 241 ML IV PRN (00:30)
[2020-07-09 01:10] VITALS: BP 116/77
[2020-07-09 01:39] LABS: AMPHETAMINE SCREEN, URINE Negative (Negative); BARBITURATE SCREEN, URINE Negative (Negative); BENZODIAZEPINE SCREEN, URINE Positive (Negative); CANNABINOID SCREEN, URINE Negative (Negative); COCAINE SCREEN, URINE Negative (Negative); METHADONE SCREEN, URINE Negative (Negative); OPIATE SCREEN, URINE Negative (Negative)
[2020-07-09 01:47] VITALS: BP 116/77
[2020-07-09] MEDS: GABAPENTIN 300 MG CAPSULE PO SCH ×4 (01:50→20:55)
[2020-07-09] MEDS: ENOXAPARIN 40 MG/0.4 ML SQ SCH (01:50)
[2020-07-09 02:26] LABS: FREE T4 (FREE THYROXINE) 0.87 ng/dL (0.76-1.46)
[2020-07-09] MEDS: HYDROmorphone 2 MG/ML, 1ML IVPush PRN ×5 (02:42→20:55)
[2020-07-09 04:56] LABS: BASOPHILS % (AUTO) 1 % (0-1); EOSINOPHILS % (AUTO) 4 % (1-7); LYMPHOCYTES % (AUTO) 42 % (22-44); MEAN CORPUSCULAR HEMOGLOBIN 33.7 pg (27.5-34.5); MEAN CORPUSCULAR HGB CONC 33.5 g/dL (33.2-36.2); MEAN PLATELET VOLUME 10.8 fL (7.4-10.4); MONOCYTES % (AUTO) 10 % (2-9); NEUTROPHILS % (AUTO) 43 % (42-75); PLATELET COUNT 158 x10^3/uL (130-400); RED BLOOD COUNT 2.73 x10^6/uL (4.38-5.82); RED CELL DISTRIBUTION WIDTH 14.9 % (9.4-14.8)
[2020-07-09 04:58] LABS: MD NO
[2020-07-09 05:12] LABS: CHLORIDE 118 mmol/L (98-107)
[2020-07-09 05:20] LABS: ALANINE AMINOTRANSFERASE 63 U/L (12-78); ALBUMIN 2.5 g/dL (3.4-5.0); ALKALINE PHOSPHATASE 68 U/L (45-117); ANION GAP 11 mmol/L (5-15); BILIRUBIN,TOTAL 0.3 mg/dL (0.2-1.0); CREATININE 1.06 mg/dL (0.7-1.3); TOTAL PROTEIN 6.1 g/dL (6.4-8.2)
[2020-07-09] MEDS ORDERED: METOLAZONE 2.5 MG TABLET PO ONE (07:30)
[2020-07-09 07:48] VITALS: BP 127/80
[2020-07-09] MEDS ORDERED: FUROSEMIDE 40 MG/4 ML IV SCH (09:00)
[2020-07-09] MEDS: SENNA/DOCUSATE TABLET PO SCH (09:00)
[2020-07-09 09:04] VITALS: BP 143/96
[2020-07-09] MEDS: THIAMINE 100MG TABLET PO/NG SCH (09:06)
[2020-07-09] MEDS: METOPROLOL SUCCINATE 50 MG TAB.ER.24H PO SCH ×2 (09:07→20:55)
[2020-07-09] MEDS ORDERED: MAGNESIUM SULFATE PMX 2GM/50ML 50 ML IV ONE (11:00)
[2020-07-09] MEDS ORDERED: AMPICILLIN/SULBACTAM 3 GM in SODIUM CHLORIDE 0.9% 100 ML IV SCH (11:00)
[2020-07-09] MEDS ORDERED: POTASSIUM CHLORIDE 20 MEQ TAB.ER.PRT PO ONE (11:00)
[2020-07-09 12:23] VITALS: BP 124/84
[2020-07-09] MEDS: CLINDAMYCIN 300 MG CAPSULE PO SCH ×2 (12:28→18:15)
[2020-07-09] MEDS: LORazepam 2 MG/ML, 1ML IVPush PRN (12:31)
[2020-07-09] MEDS ORDERED: ACETAMINOPHEN 500 MG TABLET PO PRN (16:00)
[2020-07-09 20:50] VITALS: BP 128/81
[2020-07-10 00:10] VITALS: BP 133/77
[2020-07-10] MEDS: ENOXAPARIN 40 MG/0.4 ML SQ SCH (00:10)
[2020-07-10] MEDS: CLINDAMYCIN 300 MG CAPSULE PO SCH ×4 (00:10→17:36)
[2020-07-10] MEDS: HYDROmorphone 2 MG/ML, 1ML IVPush PRN (00:39)
[2020-07-10] MEDS: LORazepam 2 MG/ML, 1ML IVPush PRN ×4 (04:50→20:08)
[2020-07-10 05:40] LABS: ANION GAP 9 mmol/L (5-15); CALCIUM 8.5 mg/dL (8.5-10.1); CHLORIDE 109 mmol/L (98-107); CREATININE 1.29 mg/dL (0.7-1.3)
[2020-07-10 07:45] VITALS: BP 130/72
[2020-07-10] MEDS ORDERED: METOPROLOL SUCCINATE 25 MG TAB.ER.24H PO SCH (08:30)
[2020-07-10] MEDS: SENNA/DOCUSATE TABLET PO SCH (09:00)
[2020-07-10] MEDS: GABAPENTIN 300 MG CAPSULE PO SCH ×3 (09:03→20:09)
[2020-07-10] MEDS: HYDROcodone/APAP 5/325 TABLET PO PRN ×2 (09:03→16:03)
[2020-07-10] MEDS: FUROSEMIDE 40 MG/4 ML IV SCH ×2 (09:04→20:09)
[2020-07-10] MEDS: THIAMINE 100MG TABLET PO/NG SCH (09:04)
[2020-07-10] MEDS: METOPROLOL SUCCINATE 50 MG TAB.ER.24H PO SCH ×2 (09:25→20:09)
[2020-07-10 12:47] VITALS: BP 105/65
[2020-07-10 20:05] VITALS: BP 129/84
[2020-07-11 00:13] VITALS: BP 117/78
[2020-07-11] MEDS: CLINDAMYCIN 300 MG CAPSULE PO SCH ×2 (00:16→05:48)
[2020-07-11] MEDS: ENOXAPARIN 40 MG/0.4 ML SQ SCH (00:16)
[2020-07-11] MEDS: LORazepam 2 MG/ML, 1ML IVPush PRN ×2 (00:16→06:05)
[2020-07-11] MEDS: HYDROcodone/APAP 5/325 TABLET PO PRN (04:03)
[2020-07-11 05:13] LABS: BASOPHILS % (AUTO) 1 % (0-1); EOSINOPHILS % (AUTO) 5 % (1-7); LYMPHOCYTES % (AUTO) 33 % (22-44); MEAN CORPUSCULAR HEMOGLOBIN 34.3 pg (27.5-34.5); MEAN CORPUSCULAR HGB CONC 33.9 g/dL (33.2-36.2); MEAN PLATELET VOLUME 11.1 fL (7.4-10.4); MONOCYTES % (AUTO) 11 % (2-9); NEUTROPHILS % (AUTO) 50 % (42-75); PLATELET COUNT 161 x10^3/uL (130-400); RED BLOOD COUNT 2.85 x10^6/uL (4.38-5.82); RED CELL DISTRIBUTION WIDTH 14.4 % (9.4-14.8)
[2020-07-11 05:20] LABS: ALBUMIN 2.6 g/dL (3.4-5.0); ANION GAP 8 mmol/L (5-15); CALCIUM 8.9 mg/dL (8.5-10.1); CHLORIDE 105 mmol/L (98-107)
[2020-07-11 05:25] LABS: CREATININE 1.32 mg/dL (0.7-1.3)
[2020-07-11 05:26] LABS: ALANINE AMINOTRANSFERASE 57 U/L (12-78); ALKALINE PHOSPHATASE 85 U/L (45-117); BILIRUBIN,TOTAL 0.3 mg/dL (0.2-1.0); TOTAL PROTEIN 6.4 g/dL (6.4-8.2)
[2020-07-11 06:05] LABS: MD SCAN
[2020-07-11] MEDS ORDERED: DOXY100T PO (06:44)
[2020-07-11] MEDS ORDERED: THIA100T67 PO/NG (06:44)
[2020-07-11] MEDS ORDERED: FOLI1TAB32 PO (06:44)
[2020-07-11] MEDS ORDERED: SPIR25TA PO (06:44)
[2020-07-11] MEDS ORDERED: GABA300C PO (06:44)
[2020-07-11] MEDS ORDERED: DOXYCYCLINE 100MG CAP PO ONE (07:00)
[2020-07-11 07:51] VITALS: BP 124/83
[2020-07-11] MEDS: GABAPENTIN 300 MG CAPSULE PO SCH (07:52)
[2020-07-11] MEDS: METOPROLOL SUCCINATE 50 MG TAB.ER.24H PO SCH (07:53)
[2020-07-11] MEDS: THIAMINE 100MG TABLET PO/NG SCH (07:53)
[2020-07-11] MEDS: SENNA/DOCUSATE TABLET PO SCH (07:53)
[2020-07-11] MEDS ORDERED: FUROSEMIDE 40 MG TABLET PO SCH (09:00)
== END 2020-07-11 10:02 | disposition home or self-care (01) | DRG 308 ==
LOC: ED 21:21 → EDIP 23:18 → 5SO 07-09 00:44 → DCLOUNGE 07-11 10:00
PROVIDERS: ADMIT Family Medicine; ATTEND Family Medicine
PROC: 5A2204Z Restoration of Cardiac Rhythm, Single (ICD-10-PCS; principal; 2020-07-08)
DX: I47.2 Ventricular tachycardia (principal); E43 Unspecified severe protein-calorie malnutrition; E87.0 Hyperosmolality and hypernatremia; F10.239 Alcohol dependence with withdrawal, unspecified; D53.9 Nutritional anemia, unspecified; E66.9 Obesity, unspecified; E83.42 Hypomagnesemia; E87.6 Hypokalemia; F32.9 Major depressive disorder, single episode, unspecified; F41.9 Anxiety disorder, unspecified; G62.1 Alcoholic polyneuropathy; I10 Essential (primary) hypertension; K70.9 Alcoholic liver disease, unspecified; R60.0 Localized edema; Z88.0 Allergy status to penicillin; Z68.35 Body mass index [BMI] 35.0-35.9, adult; Z79.899 Other long term (current) drug therapy
CPT/HCPCS: 36415; 71045; 76705; 80048; 80053; 80307; 80320; 82607; 82728; 83540; 83550; 83735; 83880; 83935; 84100; 84295; 84439; 84443; 85025; 85610; 87070; 87205; 93005; 93306; 96365; 96375; 96376; 99291; G0378; J1170; J1650; J1940; J3411; J3475; J7060; G0480; J0282; J2060; J7030

== ENCOUNTER 2020-07-15 19:16 | Emergency (ER) | payer MEDICAID ==
[~2020-07-15] VITALS: Ht 177.8 cm; Wt 95.0 kg
[~2020-07-15 19:16] MED LIST changes: +DOXY100T PO; +GABA300C PO; +SPIR25TA PO; +THIA100T67 PO/NG
--- NOTE | 2020-07-15 19:25 | NUR ---
BIB [facility]. PT WANTS TO DETOX. +ETOH PT STATES LAST DRINK TODAY 0800. PT CONNECTED TO MONITORING. CALL LIGHT IN REACH. AT BEDSIDE FOR ASSESSMENT.
[2020-07-15] MEDS ORDERED: SODIUM CHLORIDE FLUSH 10ML SYR IVF ONE (19:30)
[2020-07-15 19:52] LABS: BASOPHILS % (AUTO) 1 % (0-1); EOSINOPHILS % (AUTO) 4 % (1-7); LYMPHOCYTES % (AUTO) 44 % (22-44); MEAN CORPUSCULAR HEMOGLOBIN 33.9 pg (27.5-34.5); MEAN CORPUSCULAR HGB CONC 33.4 g/dL (33.2-36.2); MEAN PLATELET VOLUME 10.2 fL (7.4-10.4); MONOCYTES % (AUTO) 9 % (2-9); NEUTROPHILS % (AUTO) 43 % (42-75); PLATELET COUNT 235 x10^3/uL (130-400); RED BLOOD COUNT 3.24 x10^6/uL (4.38-5.82); RED CELL DISTRIBUTION WIDTH 15.4 % (9.4-14.8)
[2020-07-15 19:55] LABS: MD NO
--- NOTE | 2020-07-15 20:03 | NUR ---
PIV PLACED BY TASK RN VIA US.
[2020-07-15 20:04] LABS: ALANINE AMINOTRANSFERASE 59 U/L (12-78); ALBUMIN 3.1 g/dL (3.4-5.0); ANION GAP 11 mmol/L (5-15); CALCIUM 8.3 mg/dL (8.5-10.1); CHLORIDE 115 mmol/L (98-107); CREATININE 1.42 mg/dL (0.7-1.3)
[2020-07-15 20:08] LABS: ALKALINE PHOSPHATASE 87 U/L (45-117); BILIRUBIN,TOTAL 0.3 mg/dL (0.2-1.0); TOTAL PROTEIN 7.5 g/dL (6.4-8.2); TROPONIN I < 0.015 ng/mL (0.000-0.045)
[2020-07-15] MEDS ORDERED: LORazepam 1MG TABLET ONE (20:14)
--- NOTE | 2020-07-15 20:20 | NUR ---
VIOLIN MECHANIC PER MAR
[2020-07-15] MEDS ORDERED: LORazepam 1MG TABLET PO ONE (20:30)
--- NOTE | 2020-07-15 21:35 | NUR ---
US AT BEDSIDE.
--- NOTE | 2020-07-15 22:18 | NUR ---
ALL RESULTS ARE BACK AT THIS TIME. CHART UP FOR RECHECK.
--- NOTE | 2020-07-15 22:52 | NUR ---
REPORT FROM [facility] TRANSFER OF CARE AT THIS TIME
--- NOTE | 2020-07-15 23:15 | NUR ---
PT REQ PAIN MEDS AND ATIVAN. ERP UPDATED WITH PT REQ, NO NEW ORDER.
--- NOTE | 2020-07-15 23:15 | NUR ---
PT TO CT
[2020-07-15] MEDS ORDERED: OMNIPAQUE 350 MG/ML, 75ML BOTTLE ONE (23:24)
[2020-07-15] MEDS ORDERED: LORazepam 2 MG/ML, 1ML IV STA (23:58)
[2020-07-16] MEDS ORDERED: LORazepam 2 MG/ML, 1ML ONE (00:06)
--- NOTE | 2020-07-16 00:13 | NUR ---
PT MEDICATED PER MAR, REPEATEDLY STS NEEDS MORE THAN ONE MG OF ATIVAN THAT WON'T DO IT. PT EDUCATED THAT ORDERS ARE FOR 1MG AT THIS TIME. PT NOW REQ TAXI HOME
[2020-07-16 00:38] VITALS: BP 131/83
--- NOTE | 2020-07-16 00:39 | NUR ---
TASK RN: Patient given discharge instructions and they have confirmed that they understand the instructions. Patient ambulatory with steady gait. nad, denies additional needs, all questions answered appropriately. no personal belongings left in room after dc, provided taxi voucher per request.
== END 2020-07-16 00:41 | disposition home or self-care (01) ==
LOC: ED 23:32
DX: F10.130 Alcohol abuse with withdrawal, uncomplicated (principal); M79.89 Other specified soft tissue disorders; R94.31 Abnormal electrocardiogram [ECG] [EKG]; Y90.0 Blood alcohol level of less than 20 mg/100 ml
CPT/HCPCS: 36415; 71045; 71260; 80053; 83880; 84484; 85025; 93005; 93970; 96374; 99285; J2060; Q9967

== ENCOUNTER 2020-07-27 07:36 | Day surgery (SDC) | payer MEDICAID ==
[~2020-07-27] VITALS: Ht 177.8 cm; Wt 106.2 kg
[~2020-07-27 07:36] MED LIST changes: +HYDR-3241 PO
[2020-07-27] MEDS ORDERED: MIDAZOLAM 1 MG/ML, 2ML ONE (07:55)
[2020-07-27] MEDS ORDERED: FENTANYL PF 100 MCG/2ML ONE ×3 (07:55→12:45)
[2020-07-27] MEDS ORDERED: SUCCINYLCHOLINE 20 MG/ML, 10ML ONE (08:08)
[2020-07-27] MEDS ORDERED: CEFAZOLIN 1,000 MG ONE (08:08)
[2020-07-27] MEDS ORDERED: ROCURONIUM 10MG/ML,5ML ONE (08:08)
[2020-07-27] MEDS ORDERED: GLYCOPYRROLATE 0.2MG/1ML, 5ML ONE (08:08)
[2020-07-27] MEDS ORDERED: NEOSTIGMINE 1 MG/ML, 10ML ONE (08:08)
[2020-07-27] MEDS ORDERED: ONDANSETRON 2MG/ML, 2ML ONE (08:08)
[2020-07-27] MEDS ORDERED: DEXAMETHASONE 4 MG/ML, 1ML ONE (08:08)
[2020-07-27] MEDS ORDERED: PROPOFOL 10 MG/ML, 20ML ONE (08:08)
[2020-07-27] MEDS ORDERED: THIA500T PO (08:12)
[2020-07-27] MEDS ORDERED: SPIR25TA5 PO (08:12)
[2020-07-27] MEDS ORDERED: FOLI1TAB32 PO (08:12)
[2020-07-27] MEDS ORDERED: CHLORHEXIDINE 15 ML UDC MM ONE (08:30)
[2020-07-27] MEDS ORDERED: LACTATED RINGERS 1,000 ML IV SCH (08:30)
[2020-07-27 08:33] VITALS: BP 131/91
[2020-07-27] MEDS ORDERED: EPINEPHRINE 1 MG/ML, 1ML ONE (09:25)
[2020-07-27] MEDS ORDERED: BUPIVACAINE/PF 0.5% ONE (09:25)
[2020-07-27] MEDS ORDERED: ONDANSETRON 2MG/ML, 2ML IVPush PRN (10:30)
[2020-07-27] MEDS ORDERED: OXYcodone 5 MG/5 ML ORAL.SOL UDC PO PRN (10:30)
[2020-07-27] MEDS ORDERED: FENTANYL PF 100 MCG/2ML IV PRN (10:30)
[2020-07-27] MEDS ORDERED: HYDROcodone/APAP 7.5-325MG/15ML UDC PO PRN (10:30)
[2020-07-27] MEDS ORDERED: KETOROLAC 30 MG/1 ML IVPush PRN (10:30)
[2020-07-27] MEDS ORDERED: MEPERIDINE/PF 25MG/0.5ML IVPush PRN (10:30)
[2020-07-27] MEDS ORDERED: HYDROmorphone 1 MG/ML, 1ML INJ IVPush PRN (10:30)
[2020-07-27] MEDS ORDERED: DIAZEPAM 5 MG/ML, 2ML IVPush PRN (10:30)
[2020-07-27] MEDS ORDERED: PROMETHAZINE 25 MG/ML, 1ML IVPush PRN (10:30)
[2020-07-27] MEDS ORDERED: BUPIVACAINE/PF-EPI 0.5% 1:200K INFIL ONE (12:08)
[2020-07-27] MEDS ORDERED: DIAZEPAM 5 MG/ML, 2ML ONE (12:25)
[2020-07-27] MEDS ORDERED: OXYcodone 5 MG/5 ML ORAL.SOL UDC ONE (12:38)
[2020-07-27] MEDS ORDERED: MEPERIDINE/PF 100 MG/ML ONE (13:07)
[2020-07-27] MEDS ORDERED: MEPERIDINE/PF 25MG/0.5ML IM PRN (13:30)
[2020-07-27] MEDS ORDERED: PROMETHAZINE 25 MG/ML, 1ML IM PRN (13:30)
[2020-07-27] MEDS ORDERED: HYDROmorphone 2 MG/ML, 1ML ONE (13:32)
[2020-07-27] MEDS ORDERED: LIDOCAINE-MPF 2%, 2ML ONE (14:01)
== END 2020-07-27 16:15 | disposition home or self-care (01) ==
LOC: OUT 07:36
PROVIDERS: ATTEND Orthopaedic Surgery
DX: S42.251A Displaced fracture of greater tuberosity of right humerus, initial encounter for closed fracture (principal); I10 Essential (primary) hypertension; X58.XXXA Exposure to other specified factors, initial encounter; Y93.89 Activity, other specified; Y92.89 Other specified places as the place of occurrence of the external cause; Y99.8 Other external cause status; Z20.822 Contact with and (suspected) exposure to COVID-19; Z88.0 Allergy status to penicillin; Z79.899 Other long term (current) drug therapy; Z98.890 Other specified postprocedural states; Z72.89 Other problems related to lifestyle
CPT/HCPCS: 23630; 64415; 73060; 87635; C1713; J0171; J0330; J0690; J1100; J1170; J1885; J2175; J2250; J2405; J2704; J2710; J3010; J3360; J7120; 76000

== ENCOUNTER 2020-08-05 12:29 | Emergency (ER) | payer MEDICAID ==
[~2020-08-05] VITALS: Ht 177.8 cm; Wt 107.0 kg
[~2020-08-05 12:29] MED LIST changes: +SPIR25TA5 PO; +THIA500T PO
--- NOTE | 2020-08-05 12:48 | NUR ---
SEE TRIAGE NOTE. PT STATES HE DRANK EIGHT 99 SHOOTERS TODAY TO TREAT PAIN AFTER RUNNING OUT OF PAIN MEDICATION. F/U APPT WITH DR GUTHRIE SCHEDULED FOR TOMORROW. CALL LIGHT WITHIN REACH, WARM BLANKET PROVIDED.
--- NOTE | 2020-08-05 12:59 | NUR ---
XR RESULTS BACK, PT FOR RECHECK.
--- NOTE | 2020-08-05 13:39 | NUR ---
PT PROVIDED TAXI VOUCHER FOR SAFE TRANSPORT HOME.
[2020-08-05 13:40] VITALS: BP 142/64
== END 2020-08-05 13:42 | disposition home or self-care (01) ==
LOC: ED 12:38
DX: M79.621 Pain in right upper arm (principal); M25.511 Pain in right shoulder; I10 Essential (primary) hypertension; I95.9 Hypotension, unspecified; E87.0 Hyperosmolality and hypernatremia
CPT/HCPCS: 99283

== ENCOUNTER 2020-08-19 16:09 | Emergency (ER) | payer MEDICAID ==
[~2020-08-19] VITALS: Ht 177.8 cm; Wt 99.4 kg
--- NOTE | 2020-08-19 16:29 | NUR ---
MANAGER CLINIC: PT TO ROOM VIA STRETCHER
--- NOTE | 2020-08-19 16:40 | NUR ---
BIBA [facility] FOR ETOH AND GLF. PT STATES HE HITS HIS RIGHT SIDE OF FACE" HX OF BLINDNESS IN RIGHT EYE Addendum: 08/19/20 at 1641 by DIONICIO BIBA [facility] FOR ETOH AND GLF. PT STATES "I HIT MY RIGHT SIDE OF FACE". WHEN ASKED HOW MUCH PT DRINKS HE STATES "A LOT" AND THEN ADMITS TO DRINKING A FIFTH OF VODKA DAILY. HX OF BLINDNESS IN RIGHT EYE. PTS DAD CALLED EMS DUE TO NOT BEING ABLE TO CARE FOR PT ANY MORE. PT DENYING SI/HI, STATING "I HAVE TO TAKE CARE OF MY DAD". PT HAS HX OR RECENT FALL 2 WEEKS AGO AND PRESENTS WITH SHOULDER SLING. PT STATES HE DISLOCATED HIS RIGHT SHOULDER AND HAS A HUMEROUS FX. HAS FOLLOW UP APPOITMENT TOMORROW.
--- NOTE | 2020-08-19 18:00 | NUR ---
PT TO IMAGING
[2020-08-19 18:23] VITALS: BP 141/86
== END 2020-08-19 21:17 | disposition home or self-care (01) ==
LOC: ED 18:59
DX: S00.93XA Contusion of unspecified part of head, initial encounter (principal); S40.011A Contusion of right shoulder, initial encounter; I10 Essential (primary) hypertension; E87.0 Hyperosmolality and hypernatremia; F10.220 Alcohol dependence with intoxication, uncomplicated; W01.0XXA Fall on same level from slipping, tripping and stumbling without subsequent striking against object, initial encounter; Y93.89 Activity, other specified; Y92.89 Other specified places as the place of occurrence of the external cause; Y99.8 Other external cause status; Y90.0 Blood alcohol level of less than 20 mg/100 ml
CPT/HCPCS: 70450; 99284

== ENCOUNTER 2020-12-29 16:01 | Emergency (ER) | payer MEDICAID ==
[~2020-12-29] VITALS: Ht 177.8 cm; Wt 100.0 kg
[~2020-12-29 16:01] MED LIST changes: -OMEP40CA42 PO; +OMEP40CA8 PO
--- NOTE | 2020-12-29 16:18 | NUR ---
biba from home, per ems pt throwing up blood about an hour ago, chronic ETOH use, last drink approx 30 mins ago. pt a&o, resps even and unlabored, pt cooperative but crying, nadn. all mionitors attached, sinus tachycardia.
[2020-12-29 17:09] LABS: BASOPHILS % (AUTO) 1 % (0-1); EOSINOPHILS % (AUTO) 1 % (1-7); LYMPHOCYTES % (AUTO) 40 % (22-44); MEAN CORPUSCULAR HEMOGLOBIN 26.3 pg (27.5-34.5); MEAN PLATELET VOLUME 9.1 fL (7.4-10.4); MONOCYTES % (AUTO) 7 % (2-9); NEUTROPHILS % (AUTO) 52 % (42-75); PLATELET COUNT 182 x10^3/uL (130-400); RED BLOOD COUNT 4.77 x10^6/uL (4.38-5.82); RED CELL DISTRIBUTION WIDTH 20.8 % (9.4-14.8)
[2020-12-29 17:20] LABS: ALBUMIN 3.4 g/dL (3.4-5.0); ANION GAP 17 mmol/L (5-15); CALCIUM 8.8 mg/dL (8.5-10.1); CHLORIDE 105 mmol/L (98-107)
[2020-12-29 17:24] LABS: ALANINE AMINOTRANSFERASE 53 U/L (12-78); ALKALINE PHOSPHATASE 119 U/L (45-117); BILIRUBIN,TOTAL 0.8 mg/dL (0.2-1.0); CREATININE 0.96 mg/dL (0.7-1.3); TOTAL PROTEIN 7.8 g/dL (6.4-8.2)
[2020-12-29 17:26] LABS: INTERNATIONAL NORMALIZED RATIO 1.1 (0.93-1.1); PROTHROMBIN TIME 11.7 Seconds (9.6-11.5)
[2020-12-29 17:29] LABS: <PLATELET ESTIMATE> ADEQUATE; <PLT MORPHOLOGY> NORMAL PLT MORPH; ANISOCYTOSIS 1+; HYPOCHROMIA 1+; OVALOCYTES 1+; TEAR DROPS 1+
[2020-12-29] MEDS ORDERED: CHLORDIAZEPOXIDE 25 MG CAPSULE PO ONE (17:30)
--- NOTE | 2020-12-29 17:37 | NUR ---
pt medicated per order, tolerated well, pt in and out of sleep, nadn. awaiting lab results and dispo
[2020-12-29] MEDS ORDERED: MAGNESIUM SULFATE 1 GM, THIAMINE 100 MG, FOLIC ACID 1 MG, MVI ADULT 10 ML in SODIUM CHL... IV ONE (18:30)
--- NOTE | 2020-12-29 18:34 | NUR ---
preceptor RN note: pt desats when sleeping to 80%, oxygen applied at 2L/min. EDMD notified. JAMEY Sen reassessed pt who awakens to voice, pt a&ox4, resps even and unlabored. sinus tach rate 100s with no ectopy. spo2 94% once aroused and awake. pt ambulated to bathroom with RN stand by assist, gait unsteady. pt had large void in toilet. pt assisted back to bed, all monitors replaced, oxygen in place at 2L/min via NC. pt to have IVF and discharge when a&o, saturating well and ambulatory with steady gait.
--- NOTE | 2020-12-29 18:47 | NUR ---
pt requesting to detox at [facility] when discharged, [facility] called, uniforms sales representative states they take pt's insurance and they have two open beds, available to walk in only, first come first serve.
--- NOTE | 2020-12-29 19:08 | NUR ---
RECEIVED REPORT FROM SCARLET LLAMAS. PT SLEEPING IN [facility] AT THIS TIME.
--- NOTE | 2020-12-29 19:20 | NUR ---
REPORT TO RN VINCE AT BEDSIDE.
[2020-12-29] MEDS ORDERED: LORazepam 2 MG/ML, 1ML ONE (20:07)
[2020-12-29] MEDS ORDERED: LORazepam 2 MG/ML, 1ML IVPush ONE (20:30)
--- NOTE | 2020-12-29 20:48 | NUR ---
PT REPORTS FEELING LIKE, "I'M BLACKING OUT." PT STATES HE IS LOSING VISION INTERMITTENTLY IN HIS LEFT EYE, HE IS BLIND IN HIS RIGHT. NEUROLOGICAL EXAM NEGATIVE, PT'S LEFT EYE REACTIVE TO LIGHT/BRISK RESPONSE, BLOOD SUGAR 145. ED MD MADE AWARE.
--- NOTE | 2020-12-29 21:13 | NUR ---
DR. KAUFFMAN AT BEDSIDE FOR EVAL.
--- NOTE | 2020-12-29 21:26 | NUR ---
PT PROVIDED SANDWICH AND MILK PER PT AND MD REQUEST. PT TOLERATING EATING MEAL WELL. MEDICATED ORDERED ON EMAR. PT HYPERTENSIVE, ED MD AWARE.
[2020-12-29] MEDS ORDERED: LORazepam 2 MG/ML, 1ML IVPush PRN (21:30)
[2020-12-29] MEDS ORDERED: SODIUM CHLORIDE 0.9% 1,000ML IVBOLUS ONE (21:30)
[2020-12-29] MEDS ORDERED: SODIUM CHLORIDE FLUSH 10ML SYR IVF ONE (21:30)
[2020-12-29 21:46] VITALS: BP 165/102
--- NOTE | 2020-12-29 21:46 | NUR ---
PT REPORTS FEELING MUCH BETTER AFTER HIS MEAL. PT RESTING IN POSITION OF COMFORT IN [place]. PT REMAINS HYPERTENSIVE. FLUID INFUSING, REPORT TO SCARLET WHEELER. WILL ATTEMPT TO AMBULATE PT FOLLOWING FLUID INFUSION.
--- NOTE | 2020-12-29 21:48 | NUR ---
REPORT FROM VINCE, ALL QUESTIONS ADDRESSED TRANSFER OF CARE AT THIS TIME
--- NOTE | 2020-12-29 22:50 | NUR ---
PT AMB IN [facility], ME INSTRUCTIONS GIVEN PT CONFIRMS UNDERSTANDING, PT PROVIDED WITH VOUCHER TO CHOSEN LOCATION.
== END 2020-12-29 23:06 | disposition home or self-care (01) ==
LOC: ED 17:15
DX: F10.220 Alcohol dependence with intoxication, uncomplicated (principal); R00.0 Tachycardia, unspecified; R11.10 Vomiting, unspecified; I10 Essential (primary) hypertension; Y90.0 Blood alcohol level of less than 20 mg/100 ml
CPT/HCPCS: 36415; 80053; 82962; 83690; 85025; 85610; 85730; 96365; 96366; 96375; 96376; 99285; J2060; J3411; J3475; J7030